=== PATIENT | male | born 1930 | race African-American/Black ===

== ENCOUNTER 2017-11-23 15:29 | Outpatient (CLI) | payer MEDICARE, OTHER | END 2017-11-23 15:30 | disposition home or self-care (01) | LOC: BICRAD 15:29 | PROVIDERS: ATTEND Internal Medicine Cardiovascular Disease | DX: Z48.812 Encounter for surgical aftercare following surgery on the circulatory system (principal); Z95.0 Presence of cardiac pacemaker | CPT/HCPCS: 71046 ==

== ENCOUNTER 2018-12-15 18:23 | Emergency (ER) | payer MEDICARE, OTHER ==
[2018-12-15 19:36] LABS: #Eosinphils 0.1 thou/uL (0.0-0.7); #Lymphocytes 1.9 thou/uL (1.20-3.40); #Monocytes 1.2 thou/uL (0.11-0.59); #Neutrophils 8.3 thou/uL (1.40-6.50); %Basophils 0.1 % (0.0-1.0); %Eosinophils 0.6 % (0.0-10.0); %Lymphocytes 16.4 % (21.0-51.0); %Monocytes 10.6 % (0.0-10.0); %Neutrophils 72.3 % (42.0-75.0); Hemoglobin 10.5 g/dL (14.0-18.0); Mean Corpuscular HGB CONC 31.8 g/dL (32.0-36.0); Mean Corpuscular Hemoglobin 30.2 pg (27.0-31.0); Mean Platelet Volume 9.5 fL (7.4-10.4); Platelet Count 149 thou/uL (130-400); RBC Distribution Width 13.5 % (11.5-14.5); Red Blood Cell (RBC) Count 3.47 mill/uL (4.70-6.10); White Blood Cell (WBC) Count 11.4 thou/uL (4.8-10.8)
[2018-12-15 19:53] LABS: ALT (SGPT) 11 U/L (8-55); AST (SGOT) 17 U/L (5-34); Albumin 3.9 g/dL (3.4-4.8); Alkaline Phosphatase 72 U/L (40-150); Anion Gap 16 mmol/L (10-20); BUN (Urea Nitrogen) 31 mg/dL (8.4-25.7); Bilirubin, Total 0.7 mg/dL (0.2-1.2); Calc. Creatinine Clearance 0 mL/min (70-130); Calcium 10.2 mg/dL (7.8-10.44); Carbon Dioxide 26 mmol/L (23-31); Chloride 100 mmol/L (98-107); Estimated GFR-MDRD 31; Globulin 3.8 g/dL (2.4-3.5); Glucose 115 mg/dL (83-110); Lipase 22 U/L (8-78); Potassium 4.7 mmol/L (3.5-5.1); Protein, Total 7.7 g/dL (5.8-8.1); Sodium 137 mmol/L (136-145)
--- NOTE | 2018-12-15 20:12 | RAD ---
EXAM: Chest one view: HISTORY: Vomiting for 3 weeks, fever COMPARISON: 11/23/2017 FINDINGS: Left ICD. Heart size: Within normal limits. The lungs: Minimal patchy parenchymal changes in the left lower lobe new from prior study concerning for minimal pneumonia. Stable appearing right chest. No acute pleural effusion or edema or pneumothorax. IMPRESSION: Minimal patchy parenchymal changes in the left lower lobe evidence for minimal pneumonia.
[2018-12-15 20:37] LABS: Bilirubin Negative (Negative); Blood, Urine Small (Negative); Clarity CLEAR (Clear); Glucose, Urine (Dipstick) Negative (Negative); Leukocyte Negative (Negative); Nitrite Negative (Negative); Protein, Urine (Dipstick) 100 mg/dL (Neg-Trace); Specific Gravity, Urine 1.018 (1.002-1.036)
[2018-12-15 20:40] LABS: Bacteria/HPF None Seen HPF (None Seen); Hyaline Casts/LPF 0-3 HYALINE CAST LPF (0-3 Hyaline); RBC/HPF 0-3 HPF (0-3); Squamous Epithelial 0-3 HPF (0-3); WBC/HPF 0-3 HPF (0-3)
== END 2018-12-15 21:40 | disposition home or self-care (01) ==
LOC: ERS 18:23
DX: J18.9 Pneumonia, unspecified organism (principal); R11.2 Nausea with vomiting, unspecified; I10 Essential (primary) hypertension
CPT/HCPCS: 36415; 71045; 80053; 81003; 81015; 83690; 84484; 85025; 87040; 87804; 93005

== ENCOUNTER 2020-02-25 09:24 | Emergency (ER) | payer MEDICARE ==
[2020-02-25] MEDS ORDERED: Fentanyl 100 MCG/2 ML VIAL ONE (10:53)
--- NOTE | 2020-02-25 11:22 | RAD ---
RIGHT KNEE FOUR VIEWS: 02/25/2020 HISTORY: Fall. Right knee pain. COMPARISON: None. FINDINGS: Chondrocalcinosis of the medial and lateral compartment noted. There is medial compartment joint spac e narrowing with medial osteophyte formation. No knee joint effusion is noted on the cross-table late ral view. No acute fracture or evidence of dislocation is seen. There is patellofemoral joint space narrowing. On the cross-table lateral view, the cortex is ill-defined, involving the ventral aspect of the dista l right femur. This could be related to a nondisplaced fracture in the proper clinical setting. CT ma y be beneficial if clinically warranted. IMPRESSION: Chronic findings as detailed above. No displaced fracture or dislocation seen. There is subtle cortic al irregularity involving the anterior cortex of the distal left femur on the lateral view, which cou ld be related to a subtle nondisplaced fracture or focal osteopenia. If there is clinical concern for an anterior distal right femur fracture, a CT examination is thus advised. POS: RENATO
--- NOTE | 2020-02-25 11:24 | RAD ---
FRONTAL AND LATERAL IMAGING OF THE RIGHT FEMUR: 02/25/2020 HISTORY: Fall. Trauma. Pain. FINDINGS: No displaced fracture or evidence of dislocation seen. Subtle cortical irregularity is seen involving the anterior cortex of the distal right femur, which may signify focal osteopenia. If there is high clinical concern for a fracture at the level of the right knee, CT advised. The right hip is better a ssessed on dedicated right hip imaging. IMPRESSION: Frontal and lateral imaging of the right femur, as above. POS: RENATO
--- NOTE | 2020-02-25 11:26 | RAD ---
RIGHT HIP TWO VIEWS: HISTORY: Fall with injury. FINDINGS: The lucency seen at the base of the femoral neck is indeterminate. Fracture is not excluded although not confirmed. There are degenerative changes at the hip. IMPRESSION: Fracture at the base of the femoral neck cannot be excluded on the anterior-posterior view. If there is strong clinical suspicion, recommend further evaluation with CT right hip. POS: AGW
--- NOTE | 2020-02-25 11:57 | CT ---
CT PELVIS WITHOUT CONTRAST: INDICATIONS: Injury to right hip. Assess for fracture. FINDINGS: There are mild symmetric degenerative changes at both hips. No evidence of right hip fracture identif ied on CT. Pelvis appears intact. Degenerative changes in the lumbosacral region. No soft tissue abnormality identified. There is evidence of a cystic lesion on the first image, which probably represents a cyst from the lower pole of the left kidney. This could be confirmed with ultr asound. IMPRESSION: 1. Degenerative changes at both hips and in the lumbosacral region. No acute fracture identified. 2. Evidence of a large cyst probably from the inferior pole of the left kidney. When comparison is ma ole to a CT lumbar spine from 2016, this cyst was partially imaged on that study. POS: PK
== END 2020-02-25 11:05 | disposition home or self-care (01) ==
LOC: ERS 09:24
DX: S80.01XA Contusion of right knee, initial encounter (principal); S70.01XA Contusion of right hip, initial encounter; E78.5 Hyperlipidemia, unspecified; E78.00 Pure hypercholesterolemia, unspecified; I10 Essential (primary) hypertension; W01.0XXA Fall on same level from slipping, tripping and stumbling without subsequent striking against object, initial encounter; Y92.096 Garden or yard of other non-institutional residence as the place of occurrence of the external cause
CPT/HCPCS: 72192; 96372; J3010

== ENCOUNTER 2020-07-18 20:18 | Emergency (ER) | payer MEDICARE ==
--- NOTE | 2020-07-18 21:47 | RAD ---
RADIOGRAPH CHEST 1 VIEW: DATE: 07/18/2020 HISTORY: 89-year-old male with cough. COMPARISON: 04/20/2020 FINDINGS: The thoracic aorta is tortuous and ectatic. There is no evidence of consolidation, cardiomegaly, pulm onary edema, or pneumothorax. The lateral costophrenic angles are not effaced. Left subclavian pacemaker. There is new finding of mild, small ill-defined densities at bilateral lung bases. These could repres ent subsegmental atelectasis associated with shallower inspiration on the current study. They are somewhat less likely to represent pneumonia. IMPRESSION: 1) No consolidation. 2) ectasia of thoracic aorta. 3) nonspecific mild small, faint pulmonary densities at the bilateral lung bases. 4) recommend follow-up.
[2020-07-19 09:38] LABS: SARS-CoV-2 MS2 Positive; SARS-CoV-2 N Gene Positive; SARS-CoV-2 S Gene Positive; SARS-CoV-2 by NAA DETECTED (NotDetected); SARS-CoV-2 orf1ab Positive
== END 2020-07-18 23:08 | disposition home or self-care (01) ==
LOC: ERS 20:18
DX: U07.1 COVID-19 (principal); E78.5 Hyperlipidemia, unspecified; E78.00 Pure hypercholesterolemia, unspecified; I10 Essential (primary) hypertension; M10.9 Gout, unspecified; Z79.899 Other long term (current) drug therapy
CPT/HCPCS: 71045; U0003; 87635

== ENCOUNTER 2020-07-23 15:43 | Inpatient (IN) | payer MEDICARE ==
[2020-07-23] MEDS ORDERED: cefTRIAXone\\ROCEPHIN 1 GM VIAL ONE (16:45)
[2020-07-23] MEDS ORDERED: Azithromycin 500 MG VIAL ONE ×2 (16:45→18:34)
[2020-07-23] MEDS ORDERED: Acetaminophen 500 MG TAB ONE (16:45)
[2020-07-23] MEDS ORDERED: Dexamethasone 10 MG/ML VIAL ONE (16:45)
[2020-07-23] MEDS ORDERED: Albuterol 200 PUFF (6.7GM INHALER) ONE (16:46)
[2020-07-23 16:55] LABS: #Basophils 0.1 thou/uL (0.0-0.2); #Lymphocytes 1.9 thou/uL (1.20-3.40); #Monocytes 0.7 thou/uL (0.11-0.59); #Neutrophils 7.2 thou/uL (1.40-6.50); %Basophils 0.5 % (0.0-1.0); %Eosinophils 0.2 % (0.0-10.0); %Lymphocytes 19.7 % (21.0-51.0); %Monocytes 6.6 % (0.0-10.0); Hemoglobin 10.4 g/dL (14.0-18.0); Mean Corpuscular HGB CONC 32.6 g/dL (32.0-36.0); Mean Corpuscular Hemoglobin 31.3 pg (27.0-31.0); Mean Corpuscular Volume 96.1 fL (78.0-98.0); Mean Platelet Volume 11.7 fL (7.4-10.4); Platelet Count 171 thou/uL (130-400); Red Blood Cell (RBC) Count 3.31 mill/uL (4.70-6.10); White Blood Cell (WBC) Count 9.9 thou/uL (4.8-10.8)
[2020-07-23 16:59] LABS: PTT 32.8 sec (22.9-36.1); Prothrombin Time 13.3 sec (12.0-14.7)
[2020-07-23 17:03] LABS: Bilirubin 1+ (Negative); Blood, Urine 2+ (Negative); Clarity Turbid (Clear); Glucose, Urine (Dipstick) Normal (Negative); Ketone, Urine Negative (Negative); Leukocyte 75 Leu/uL (Negative); Nitrite Negative (Negative); Protein, Urine (Dipstick) Greater than 600 mg/dL (Neg-Trace); Specific Gravity, Urine 1.026 (1.002-1.036); Squamous Epithelial 0-3 HPF (0-3); WBC/HPF 21-50 HPF (0-3)
[2020-07-23 17:06] LABS: Bacteria/HPF 1+ HPF (None Seen)
[2020-07-23 17:13] LABS: ALT (SGPT) 39 U/L (8-55); AST (SGOT) 63 U/L (5-34); Albumin 3.5 g/dL (3.4-4.8); Alkaline Phosphatase 63 U/L (40-110); Anion Gap 21 mmol/L (10-20); BUN (Urea Nitrogen) 47 mg/dL (8.4-25.7); Bilirubin, Total 1.4 mg/dL (0.2-1.2); Calc. Creatinine Clearance 0 mL/min (70-130); Calcium 9.2 mg/dL (7.8-10.44); Carbon Dioxide 20 mmol/L (23-31); Chloride 103 mmol/L (98-107); Estimated GFR-MDRD 27; Glucose 117 mg/dL (83-110); Potassium 4.7 mmol/L (3.5-5.1); Protein, Total 7.5 g/dL (5.8-8.1); Sodium 139 mmol/L (136-145)
--- NOTE | 2020-07-23 17:18 | RAD ---
RADIOGRAPH CHEST 1 VIEW: DATE: 07/23/2020 TIME: 5:01 PM HISTORY: 89-year-old COVID-19 positive male with cough COMPARISON: 07/18/2020 FINDINGS: Previously demonstrated mild small faint pulmonary densities at left base has slightly worsened. Mild, faint infiltrate-like density at right base is again noted, but now there is also a patchy hazy density at a slightly more superior location in the right lower lung zone. No cardiomegaly. No pneumothorax. Pacemaker. IMPRESSION: Slight progression of mild pulmonary densities at bilateral lower lung zones, nonspecific. The density at the right lower lung zone could perhaps represent COVID-19 viral pneumonia. Recommend follow-up.
[2020-07-23 17:36] LABS: CKMB 0.9 ng/mL (0-6.6)
--- NOTE | 2020-07-23 18:16 | CT ---
CT BRAIN NONCONTRAST: DATE: 07/23/2020 HISTORY: 89-year-old male with altered mental status: Confusion, and acute head injury from fall FINDINGS: There is no evidence of acute intra-axial or extra-axial hemorrhage. There is no midline shift or any other mass effect. There is no extra-axial fluid collection. There is no evidence of obstructive hydrocephalus. Calvarium is intact. There is diffuse brain parenchymal volume loss. IMPRESSION: 1) No acute intracranial findings. 2) involutional changes.
--- NOTE | 2020-07-23 18:20 | CT ---
CT CERVICAL SPINE NONCONTRAST: DATE: 07/23/2020 HISTORY: cervical trauma: 89-year-old male status post fall FINDINGS: There are no jumped or perched facets. There is no evidence of acute fracture. The vertebral body hei ghts are maintained. There is no prevertebral soft tissue swelling. Severe degenerative disc disease at C3-4 and C4-5, where there is severe central spinal canal stenosis and severe bilateral ne ural foraminal stenosis. No high-grade degenerative disc disease at the rest of the levels. No high-grade facet DJD. IMPRESSION: 1. No evidence of acute fracture or acute traumatic subluxation. 2. Cervical spondylosis consisting of severe degenerative disc disease isolated to the C3-4 and C4-5 levels, where there is severe central spinal canal stenosis and severe bilateral neural foraminal stenosis.
--- NOTE | 2020-07-23 18:25 | CT ---
CT THORAX NONCONTRAST: DATE: 07/23/2020 HISTORY: 89-year-old COVID-19 positive male with cough FINDINGS: There are severe groundglass infiltrates throughout the superior and basilar segments of the right lo wer lobe, both centrally and peripherally, which appears more severe than on the recent plain chest radiograph. There is involvement of the posterior segment, as well as regions of the anterior segment, of the rig ht upper lobe, of a moderately severe degree. There are moderately severe such infiltrates in the contralateral left lower lobe, involving basilar and superior segments. No pleural effusion, pneumothorax, cardiomegaly, pericardial effusion, or thoracic aortic aneurysm. Left subclavian pacemaker. IMPRESSION: Bilateral infiltrates involving almost the entire right lower lobe, much of the left lower lobe, and much of the right upper lobe, which appear much more severe on the CT compared to the plain radiograph. This is consistent with pneumonia, probably COVID-19 pneumonia.
[2020-07-23] MEDS ORDERED: Acetaminophen 325 MG TAB PO PRN (20:16)
[2020-07-23] MEDS ORDERED: Enoxaparin Sodium 30 MG/0.3 ML SYRINGE ONE (20:39)
[2020-07-23 21:47] LABS: Troponin I 0.046 ng/mL (< 0.028)
[2020-07-24 00:30] LABS: Troponin I 0.041 ng/mL (< 0.028)
[2020-07-24] MEDS: Famotidine 20 MG TAB PO SCH ×2 (00:34→19:50)
[2020-07-24] MEDS ORDERED: Benzonatate 100 MG CAP PO PRN (00:52)
--- NOTE | 2020-07-24 02:23 | HP ---
PRIMARY CARE PHYSICIAN: Dr. Michael Smith. CHIEF COMPLAINT: Confusion, lethargy, COVID positive diagnosis. HISTORY OF PRESENT ILLNESS: Mr. Ventura is a very pleasant 89-year-old man, who came to the emergency room today via EMS. EMS reported that the patient's family called because he had been confused for the past few days. Family reported that he had fallen, but denied that he hit his head or lost any consciousness. The patient complains of generalized weakness. EMS reported some mild hypotension and mild tachycardia when they picked him up. He was seen in this ER on 07/18 when he was diagnosed with COVID-19. Chest x-ray at that time showed nonspecific densities in the lower lung black. He was not hypoxic and he was sent home. Since that time, family reports that he has gotten confused. He reports coughing, but denied coughing anything up, and they denied any GI symptoms. The patient denies fever or dysuria. Past medical history, he has a pacemaker, history of hyperlipidemia, hypertension, gout. Laboratory values in the emergency room, white blood cell count is 9.9, platelets are 171. Carbon dioxide 20, gap is 21, BUN is 47, creatinine is 2.71, glucose 117, bilirubin 1.4, AST 63. He has had 3 troponins, which were in the indeterminate range. He does have a history of chronic kidney dysfunction, and today, he has some acute on chronic. He became hypoxic while in the emergency room, which improved after 2 L of nasal cannula. They did give him 2 L of normal saline, Lovenox, azithromycin, Rocephin, dexamethasone, and albuterol inhaler, which improved his symptoms. He is afebrile while in the emergency room. He had a brain CT, which was negative for any acute findings. He did have a chest CT, which showed bilateral infiltrates involving almost the entire right lower lobe, much of the left lower lobe, and much of the right upper lobe, consistent with COVID-19 pneumonia. He also had a cervical spine CT, which was negative for any acute fracture. He will be admitted to telemetry for further management. REVIEW OF SYSTEMS: The patient denied fever, chills. Does report a cough, shortness of breath, confusion, hypotension. All systems were reviewed and are negative unless mentioned above or in the HPI. PAST MEDICAL HISTORY: Atrial fibrillation, has a pacemaker; chronic back pain; BPH; GERD; hypertension; hyperlipidemia; peripheral neuropathy; iron deficiency anemia. SURGICAL HISTORY: Right hip repair, pacemaker placement. SOCIAL HISTORY: He lives with his . He uses a cane for ambulation. Denies any tobacco, alcohol, or drug use. FAMILY HISTORY: Hyperlipidemia, arthritis, heart disease, and hypertension. ALLERGIES: NONE. HOME MEDICATIONS: 1. Allopurinol 300 mg p.o. daily. 2. Aspirin 81 mg p.o. daily. 3. Ferrous sulfate 325 mg p.o. daily. 4. Finasteride 5 mg p.o. daily. 5. Gabapentin 600 mg p.o. daily. 6. Prilosec 20 mg p.o. daily. 7. Pravastatin 40 mg p.o. q.p.m. 8. Flomax 0.4 mg p.o. h.s. 9. Tessalon 100 mg p.o. t.i.d. p.r.n. 10. Mag-Ox 400 mg p.o. daily. PHYSICAL EXAMINATION: VITAL SIGNS: Blood pressure 121/58, pulse is 70, respiratory rate is 21, temperature is 98.8, sats are 99% on 2 L. CONSTITUTIONAL: The patient appears nontoxic. He is alert and oriented to person and place. HEAD: Atraumatic and normocephalic. EYES: Pupils are equally round and reactive to light. ENT: Mouth exam is normal. Mucous membranes are moist. NECK: Trachea is midline. No cervical adenopathy. RESPIRATORY/CHEST: He does have decreased breath sounds, bilateral lobes. Scattered wheezing. Chest expansion is equal. CARDIOVASCULAR: Heart sounds are normal. He has a pacemaker in the left upper chest. ABDOMEN: Nontender. Bowel sounds are heard. EXTREMITIES: Upper extremity, normal range of motion. Motor strength is normal. Radial pulses are normal. Lower extremity, normal range of motion. Motor strength is normal. Pedal pulses are normal. NEURO: He is oriented to person and place. Does take him a minute to answer questions. PLAN/ASSESSMENT: 1. COVID-19 pneumonia with hypoxia. We will continue the dexamethasone daily. We have consulted Dr. iKng. We have continued azithromycin, Rocephin, added albuterol inhaler. Blood cultures were obtained. We have added a CRP, D-dimer, ferritin, LDH, magnesium, procalcitonin for the a.m. 2. Hypoxia. Please see #1. 3. Acute on chronic kidney disease. We will recheck values in the morning. Hold any nephrotoxic medications. 4. Elevated troponin x3, in the indeterminate range, although on his last visit. 5. History of hyperlipidemia. We will restart his pravastatin. 6. History of gout. We will continue the allopurinol. 7. Deep venous thrombosis and gastrointestinal prophylaxis started. 8. Case discussed with Dr. Rivera, who agrees with plan. 9. Hospital course dependent on clinical findings. Job ID: [id number]
[2020-07-24 05:43] LABS: #Lymphocytes 1.1 thou/uL (1.20-3.40); #Monocytes 0.2 thou/uL (0.11-0.59); #Neutrophils 5.2 thou/uL (1.40-6.50); %Basophils 0.5 % (0.0-1.0); %Eosinophils 0.2 % (0.0-10.0); %Lymphocytes 16.2 % (21.0-51.0); %Monocytes 3.5 % (0.0-10.0); %Neutrophils 79.7 % (42.0-75.0); Hemoglobin 8.3 g/dL (14.0-18.0); Mean Corpuscular HGB CONC 31.8 g/dL (32.0-36.0); Mean Corpuscular Hemoglobin 30.6 pg (27.0-31.0); Mean Corpuscular Volume 96.1 fL (78.0-98.0); Mean Platelet Volume 10.7 fL (7.4-10.4); Platelet Count 161 thou/uL (130-400); RBC Distribution Width 13.8 % (11.5-14.5); Red Blood Cell (RBC) Count 2.72 mill/uL (4.70-6.10); White Blood Cell (WBC) Count 6.5 thou/uL (4.8-10.8)
[2020-07-24 06:10] LABS: ALT (SGPT) 29 U/L (8-55); AST (SGOT) 40 U/L (5-34); Alkaline Phosphatase 52 U/L (40-110); Anion Gap 18 mmol/L (10-20); BUN (Urea Nitrogen) 55 mg/dL (8.4-25.7); Bilirubin, Total 1.1 mg/dL (0.2-1.2); CRP (Inflammatory) 25.77 mg/dL (= or < 0.5); Calc. Creatinine Clearance 18 mL/min (70-130); Calcium 9.1 mg/dL (7.8-10.44); Carbon Dioxide 19 mmol/L (23-31); Chloride 107 mmol/L (98-107); Estimated GFR-MDRD 26; Glucose 153 mg/dL (83-110); Magnesium 1.6 mg/dL (1.6-2.6); Potassium 4.4 mmol/L (3.5-5.1); Sodium 140 mmol/L (136-145)
[2020-07-24] MEDS: Dexamethasone 4 MG TAB PO SCH (08:08)
[2020-07-24] MEDS: Aspirin Chewable 81 MG TAB PO SCH (08:08)
[2020-07-24] MEDS: Gabapentin 300 MG CAP PO SCH (08:08)
[2020-07-24] MEDS: Finasteride 5 MG TAB PO SCH (08:09)
[2020-07-24] MEDS: Enoxaparin Sodium 40 MG/0.4 ML SYRINGE SC SCH (08:09)
[2020-07-24] MEDS: Allopurinol 300 MG TAB PO SCH (08:09)
[2020-07-24] MEDS: Sodium Bicarbonate Tab 325 MG TAB PO SCH ×2 (15:13→19:50)
[2020-07-24] MEDS: cefTRIAXone\\ROCEPHIN 1 GM in Sodium Chloride 0.9% 100 ML IVPB SCH (15:13)
--- NOTE | 2020-07-24 15:33 | PDOC.HOSPP ---
- Subjective Encounter Date: 07/24/20 Subjective: Patient was seen and examined in bed. He was generally comfortable on 2 L of oxygen. Denies any cough chest pain or shortness of breath. No significant events overnight. - Objective Vital Signs & Weight: Vital Signs (12 hours) Temp Pulse Pulse Pulse Resp BP BP 07/24/20 11:15 98.5 F 69 20 07/24/20 10:40 73 75 144/69 H 132/63 07/24/20 08:15 98.5 F 67 20 BP Pulse Ox Pulse Ox Pulse Ox 07/24/20 11:15 124/56 L 99 07/24/20 10:40 100 98 07/24/20 08:15 136/65 99 Weight Admit Weight 153 lb 8 oz Weight 153 lb 8 oz I&O: 07/23/20 07/24/20 07/25/20 06:59 06:59 06:59 Intake Total 240 Output Total 0 Balance 240 Result Diagrams: 07/24/20 05:25 07/24/20 05:25 Hospitalist ROS - Medication Medications: Active Medications Generic Name Dose Route Start Last Admin Trade Name Freq PRN Reason Stop Dose Admin Allopurinol 300 mg 07/24/20 09:00 07/24/20 08:09 Allopurinol 300 Mg Tab PO 300 mg DAILY MIK Administration Aspirin 81 mg 07/24/20 09:00 07/24/20 08:08 Aspirin Chewable 81 Mg Tab PO 81 mg DAILY MIK Administration Dexamethasone 6 mg 07/24/20 08:00 07/24/20 08:08 Dexamethasone 4 Mg Tab PO 6 mg QAM-WM MIK Administration Enoxaparin Sodium 40 mg 07/24/20 09:00 07/24/20 08:09 Enoxaparin Sodium 40 Mg/0.4 Ml Syringe SC 40 mg 0900 MIK Administration Famotidine 20 mg 07/23/20 21:00 07/24/20 00:34 Famotidine 20 Mg Tab PO 20 mg 2100 MIK Administration Finasteride 5 mg 07/24/20 09:00 07/24/20 08:09 Finasteride 5 Mg Tab PO 5 mg DAILY MIK Administration Gabapentin 600 mg 07/24/20 09:00 07/24/20 08:08 Gabapentin 300 Mg Cap PO 600 mg DAILY MIK Administration Ceftriaxone Sodium 1 gm/ 100 mls @ 200 mls/hr 07/24/20 16:00 07/24/20 15:13 Sodium Chloride IVPB 100 mls Q24HR MIK Administration Sodium Bicarbonate 650 mg 07/24/20 15:00 07/24/20 15:13 Sodium Bicarbonate Tab 325 Mg Tab PO 650 mg TID MIK Administration - Exam General Appearance: awake alert Heart: RRR, no murmur, no gallops Respiratory: CTAB, no wheezes, no rales Gastrointestinal: soft, non-tender, non-distended, normal bowel sounds Extremities: no cyanosis, no clubbing, no edema Neurological: cranial nerve grossly intact, no focal deficits Psychiatric: A&O x 3 Hosp A/P - Plan This is a 89-year-old male patient admitted on account of Covid pneumonia d iagnosed on 07/18/2020. He presented earlier and got readmitted a day ago on account of confusion hypoxia and dyspnea. Acute hypoxic respiratory failure Secondary to Covid On minimal oxygen2 L Continue monitoring closely. Pneumonia due to Covid Continue on Decadron, enoxaparin Serial ferritin, CRP ID has been consulted Acute on chronic CKD Hold nephrotoxic agents Monitor BMP History of gout Continue allopurinol UTI Culture growing presumptive Proteus mirabilis Continue antibiotics for now Appreciate ID input. VT prophylaxisLovenox CODE STATUSfull code
[2020-07-24] MEDS ORDERED: Azithromycin 500 MG in Sodium Chloride 0.9% 250 ML 250 ML IVPB SCH (18:00)
[2020-07-24] MEDS: Atorvastatin Calcium 10 MG TAB PO SCH (19:50)
[2020-07-24] MEDS: Tamsulosin HCl 0.4 MG CAP PO SCH (19:50)
--- NOTE | 2020-07-25 02:24 | CON ---
DATE OF CONSULTATION: 07/24/2020 REASON FOR CONSULT: COVID pneumonia. HISTORY OF PRESENT ILLNESS: An 89-year-old, history of sick sinus syndrome with pacemaker, hyperlipidemia, and hypertension, who was brought to the ER by EMS after family reported he was confused for the past few days, sustained a fall, although he did not lose his consciousness. Mild hypotension. No tachycardia. A few days earlier, he had been diagnosed with COVID infection. He had nonspecific densities in lower lung black and in a confusional state developed in the next few days. There were some coughing spells but not frequently. No fever was identified by the family members. Initial findings included blood pressure 117/60, pulse 100, respirations 17, and O2 saturation 98% on room air. Temp went up to 101.3 in the emergency room. The exam described wheezing anteriorly in the left side, diminished breath sounds in lower lobes and then described as oriented x3, but sluggish with replies. Other findings; white cell count 9.9, hemoglobin 10.4, platelets 171, and 72% neutrophils. INR 1.0. D-dimer 3.41. Sodium 139, creatinine 2.71, bilirubin 1.4, and AST 63. Troponin 0.069. Albumin 3.5, globulin 4.0. Urinalysis wbc's. Patient had a chest CT scan yesterday which showed infiltrates involving the entire right lower lobe, much of the left lower lobe, much of the right upper lobe. Ferritin was 8600 and the C-reactive protein was 25. Patient has been given ceftriaxone, Decadron and currently Mr. Ventura is awake. He does not appear to be in distress. His O2 saturations are improving. Denies any headaches. Mild dyspnea and some cough. No back pain. No abdominal pain. No vomiting. Able to void without difficulty. MEDICAL HISTORY: Sick sinus syndrome, pacemaker, hyperlipidemia, hypertension, chronic low back pain, BPH, GERD, neuropathy, and iron-deficiency anemia. SURGICAL HISTORY: Right hip repair and the pacemaker. SOCIAL HISTORY: . Never smoker. FAMILY HISTORY: Hypertension and hyperlipidemia. ALLERGIES: NONE. MEDICATION LIST: At the moment, patient is on: 1. DuoNeb. 2. Zyloprim. 3. Lipitor. 4. Tessalon. 5. Ceftriaxone. 6. Decadron. 7. Lovenox. 8. Neurontin. PHYSICAL EXAMINATION: VITAL SIGNS: Temperature has been normal. BP 108/56, heart rate 73, respiratory rate 18, and O2 saturation 97% on 2 L nasal cannula. SKIN: Shows peripheral IV access. He is voiding in the urinal. No lymphadenopathy. HEENT: Ocular movements conjugate. Oral cavity is unremarkable. NECK: Supple. LUNGS: Symmetric air entry. Basilar crackles. HEART: S1, S2. Regular rate. ABDOMEN: Soft. Not distended or tender. No ascites. No bladder distention. EXTREMITIES: No joint inflammatory activity. Moves extremities equally. No edema. NEUROLOGIC: Awake and oriented. Follows commands. Recollection is good. LABORATORY: Creatinine is at 2.8. ASSESSMENT/DISCUSSION: 1. Sick sinus syndrome with pacemaker. 2. Hypertension. 3. [id number] COVID pneumonia. Patient is not eligible for Remdesivir due to GFR. Continue on Decadron. May consider discontinuing ceftriaxone since the frequency of superimposed bacterial pneumonia in COVID patient is less than 5%. This is the 6th or 7th day of illness. If he going into the inflammatory phase, he has high ferritin and CRP, and then he will have to be monitored closely in the next few days in the hospital since there is a high possibility of deterioration once he gets in to the second week of this illness. This deterioration can be sudden. The harbinger usually is increasing requirement of fluctuations of oxygen supplementation which can progress very rapidly. On the other hand, we may see a decrease in inflammatory markers and stability. It is hard to predict with this illness. Job ID: [id number] MTDD
[2020-07-25 05:42] LABS: #Lymphocytes 1.3 thou/uL (1.20-3.40); #Monocytes 0.6 thou/uL (0.11-0.59); #Neutrophils 15.2 thou/uL (1.40-6.50); %Basophils 0.2 % (0.0-1.0); %Eosinophils 0.2 % (0.0-10.0); %Lymphocytes 7.5 % (21.0-51.0); %Monocytes 3.7 % (0.0-10.0); %Neutrophils 88.6 % (42.0-75.0); Hemoglobin 8.8 g/dL (14.0-18.0); Mean Corpuscular HGB CONC 30.9 g/dL (32.0-36.0); Mean Corpuscular Hemoglobin 30.6 pg (27.0-31.0); Mean Corpuscular Volume 99.1 fL (78.0-98.0); Mean Platelet Volume 10.5 fL (7.4-10.4); Platelet Count 204 thou/uL (130-400); Red Blood Cell (RBC) Count 2.88 mill/uL (4.70-6.10); White Blood Cell (WBC) Count 17.2 thou/uL (4.8-10.8)
[2020-07-25 06:06] LABS: Anion Gap 20 mmol/L (10-20); BUN (Urea Nitrogen) 73 mg/dL (8.4-25.7); CRP (Inflammatory) 15.01 mg/dL (= or < 0.5); Calc. Creatinine Clearance 17 mL/min (70-130); Calcium 9.2 mg/dL (7.8-10.44); Carbon Dioxide 16 mmol/L (23-31); Chloride 107 mmol/L (98-107); Estimated GFR-MDRD 25; Glucose 118 mg/dL (83-110); Potassium 4.9 mmol/L (3.5-5.1); Sodium 138 mmol/L (136-145)
[2020-07-25] MEDS: Sodium Bicarbonate Tab 325 MG TAB PO SCH ×3 (07:59→19:38)
[2020-07-25] MEDS: Ferrous Sulfate 325 MG TAB PO SCH (08:00)
[2020-07-25] MEDS: Dexamethasone 4 MG TAB PO SCH (08:00)
[2020-07-25] MEDS: Aspirin Chewable 81 MG TAB PO SCH (08:00)
[2020-07-25] MEDS: Allopurinol 300 MG TAB PO SCH (08:00)
[2020-07-25] MEDS: Gabapentin 300 MG CAP PO SCH (08:00)
[2020-07-25] MEDS: Finasteride 5 MG TAB PO SCH (08:00)
[2020-07-25] MEDS: Enoxaparin Sodium 40 MG/0.4 ML SYRINGE SC SCH (08:01)
--- NOTE | 2020-07-25 12:01 | PDOC.HOSPP ---
- Subjective Encounter Date: 07/25/20 Encounter Time: 11:15 Subjective: is on nasal canula, no sob, feels better says he is eating well moves all extremities responds well to verbal stimuli - Objective Vital Signs & Weight: Vital Signs (12 hours) Temp Pulse Resp BP Pulse Ox 07/25/20 08:10 98 F 76 18 130/57 L 94 L 07/25/20 03:29 97.6 F 70 18 125/56 L 95 Weight Admit Weight 153 lb 8 oz Weight 152 lb 4.8 oz I&O: 07/24/20 07/25/20 07/26/20 06:59 06:59 06:59 Intake Total 240 820 530 Output Total 0 225 75 Balance 240 595 455 Result Diagrams: 07/25/20 05:07 07/25/20 05:07 Hospitalist ROS - Medication Medications: Active Medications Generic Name Dose Route Start Last Admin Trade Name Freq PRN Reason Stop Dose Admin Allopurinol 300 mg 07/24/20 09:00 07/25/20 08:00 Allopurinol 300 Mg Tab PO 300 mg DAILY MIK Administration Aspirin 81 mg 07/24/20 09:00 07/25/20 08:00 Aspirin Chewable 81 Mg Tab PO 81 mg DAILY MIK Administration Atorvastatin Calcium 10 mg 07/24/20 21:00 07/24/20 19:50 Atorvastatin Calcium 10 Mg Tab PO 10 mg QPM MIK Administration Dexamethasone 6 mg 07/24/20 08:00 07/25/20 08:00 Dexamethasone 4 Mg Tab PO 6 mg QAM-WM MIK Administration Enoxaparin Sodium 40 mg 07/24/20 09:00 07/25/20 08:01 Enoxaparin Sodium 40 Mg/0.4 Ml Syringe SC 40 mg 0900 MIK Administration Famotidine 20 mg 07/23/20 21:00 07/24/20 19:50 Famotidine 20 Mg Tab PO 20 mg 2100 MIK Administration Ferrous Sulfate 325 mg 07/25/20 09:00 07/25/20 08:00 Ferrous Sulfate 325 Mg Tab PO 325 mg DAILY MIK Administration Finasteride 5 mg 07/24/20 09:00 07/25/20 08:00 Finasteride 5 Mg Tab PO 5 mg DAILY MIK Administration Gabapentin 600 mg 07/24/20 09:00 07/25/20 08:00 Gabapentin 300 Mg Cap PO 600 mg DAILY MIK Administration Ceftriaxone Sodium 1 gm/ 100 mls @ 200 mls/hr 07/24/20 16:00 07/24/20 15:13 Sodium Chloride IVPB 100 mls Q24HR MIK Administration Sodium Bicarbonate 650 mg 07/24/20 15:00 07/25/20 07:59 Sodium Bicarbonate Tab 325 Mg Tab PO 650 mg TID MIK Administration Tamsulosin HCl 0.4 mg 07/24/20 21:00 07/24/20 19:50 Tamsulosin Hcl 0.4 Mg Cap PO 0.4 mg HS MIK Administration - Exam General Appearance: awake alert Eye: PERRL, anicteric sclera ENT: no oropharyngeal lesions, moist mucosa Neck: supple, no JVD Heart: RRR, no murmur Respiratory: no wheezes, no rales Gastrointestinal: soft, non-tender, non-distended, normal bowel sounds Extremities: no cyanosis, no edema Neurological: cranial nerve grossly intact, no focal deficits Hosp A/P (1) Pneumonia due to COVID-19 virus Code(s): U07.1 - COVID-19; J12.89 - OTHER VIRAL PNEUMONIA Status: Acute (2) Acute respiratory failure with hypoxia Code(s): J96.01 - ACUTE RESPIRATORY FAILURE WITH HYPOXIA Status: Acute (3) [id number] kidney injury Code(s): N17.9 - ACUTE KIDNEY FAILURE, UNSPECIFIED; N18.9 - CHRONIC KIDNEY DISEASE, UNSPECIFIED Status: Acute Qualifiers: Chronic kidney disease stage: stage 4 (severe) (4) Anemia Code(s): D64.9 - ANEMIA, UNSPECIFIED Status: Chronic Qualifiers: Anemia type: unspecified type Qualified Code(s): D64.9 - Anemia, unspecified (5) Chronic back pain Code(s): M54.9 - DORSALGIA, UNSPECIFIED; G89.29 - OTHER CHRONIC PAIN Status: Chronic Qualifiers: Back pain location: back pain in unspecified location (6) Gout Code(s): M10.9 - GOUT, UNSPECIFIED Status: Chronic Qualifiers: Gout site: unspecified site Chronicity: chronic Presence of tophus: without tophus (7) Hyperlipidemia Code(s): E78.5 - HYPERLIPIDEMIA, UNSPECIFIED Status: Chronic Qualifiers: Hyperlipidemia type: unspecified Qualified Code(s): E78.5 - Hyperlipidemia, unspecified (8) Hypertension Code(s): I10 - ESSENTIAL (PRIMARY) HYPERTENSION Status: Chronic Qualifiers: Hypertension type: essential hypertension Qualified Code(s): I10 - Essential (primary) hypertension - Plan is on nasal canula, dexamethasone, lovenox dvt prophylaxis, no remdesevir due to renal issue continue asp, lipitor, flomax and proscar. May dc ceftriaxone after 2 days for uti?. PT to mobilize as tolerated encephalopathy acute resolved sec to covid pna and dehydration.
[2020-07-25] MEDS: cefTRIAXone\\ROCEPHIN 1 GM in Sodium Chloride 0.9% 100 ML IVPB SCH (17:10)
[2020-07-25] MEDS: Famotidine 20 MG TAB PO SCH (19:38)
[2020-07-25] MEDS: Tamsulosin HCl 0.4 MG CAP PO SCH (19:38)
[2020-07-25] MEDS: Atorvastatin Calcium 10 MG TAB PO SCH (19:38)
[2020-07-26 05:42] LABS: Band 5 % (5-11); Hemoglobin 8.6 g/dL (14.0-18.0); Hypochromia SLIGHT = 6-15 cells (100X) (0-5/hpf); Lymphocytes 8 % (21-51); MDiff Complete? YES; Mean Corpuscular HGB CONC 32.6 g/dL (32.0-36.0); Mean Corpuscular Hemoglobin 31.2 pg (27.0-31.0); Mean Platelet Volume 10.5 fL (7.4-10.4); Monocytes 1 % (0-10); Neutrophil 86 % (42-75); Platelet Count 240 thou/uL (130-400); Platelet Morphology Comment Appears Adequate; RBC Distribution Width 13.7 % (11.5-14.5); Red Blood Cell (RBC) Count 2.74 mill/uL (4.70-6.10); White Blood Cell (WBC) Count 18.1 thou/uL (4.8-10.8)
[2020-07-26 05:46] LABS: Anion Gap 17 mmol/L (10-20); BUN (Urea Nitrogen) 76 mg/dL (8.4-25.7); CRP (Inflammatory) 8.44 mg/dL (= or < 0.5); Calc. Creatinine Clearance 19 mL/min (70-130); Calcium 9.2 mg/dL (7.8-10.44); Carbon Dioxide 22 mmol/L (23-31); Chloride 107 mmol/L (98-107); Estimated GFR-MDRD 28; Glucose 110 mg/dL (83-110); Potassium 4.6 mmol/L (3.5-5.1); Sodium 141 mmol/L (136-145)
[2020-07-26] MEDS: Enoxaparin Sodium 40 MG/0.4 ML SYRINGE SC SCH (07:32)
[2020-07-26] MEDS: Sodium Bicarbonate Tab 325 MG TAB PO SCH ×3 (07:33→21:34)
[2020-07-26] MEDS: Dexamethasone 4 MG TAB PO SCH (07:33)
[2020-07-26] MEDS: Aspirin Chewable 81 MG TAB PO SCH (07:33)
[2020-07-26] MEDS: Finasteride 5 MG TAB PO SCH (07:34)
[2020-07-26] MEDS: Ferrous Sulfate 325 MG TAB PO SCH (07:34)
[2020-07-26] MEDS: Allopurinol 300 MG TAB PO SCH (07:34)
[2020-07-26] MEDS: Gabapentin 300 MG CAP PO SCH (07:34)
--- NOTE | 2020-07-26 14:52 | PDOC.DS.DS ---
Provider - Provider Date of Admission: 07/23/20 20:11 Date of Discharge: 07/26/20 Admitting Provider: Joshua San Primary Care Physician: KATHIE PCP PROVIDER Course - Hospital Course Hospital Course: This is an 89-year-old male with past medical history of sick sinus syndrome, hypertension, hyperlipidemia, GERD, peripheral neuropathy, and iron deficiency anemia who was brought to the ER by his family due to confusion. The patient was diagnosed with COVID-19 infection prior to admission. His chest x-ray revealed bilateral opacities and the patient was found to be slightly hypoxic. He was admitted to the hospital placed on dexamethasone and supplemental oxygen which was subsequently weaned off as the patient's condition improved. He was placed on IV antibiotics empirically and those were discontinued as his condition improved. At this time, the patient does not have any indications for further hospitalization. Resuscitation Status: 07/24/20 00:48 Resuscitation Status Routine Co-Sign Provider: Resuscitation Status: FULL: Full Resuscitation Discussed with: patient - Labs Lab Results: 07/26/20 04:49 07/26/20 04:49 Abnormal Lab Results - Last 48 hrs 07/25/20 05:07: Carbon Dioxide 16 L, BUN 73 H, Creatinine 2.85 H, C-Reactive Protein 15.01 H 07/25/20 05:07: WBC 17.2 H, RBC 2.88 L, Hgb 8.8 L, Hct 28.5 L, MCV 99.1 H, MCHC 30.9 L, MPV 10.5 H, Neutrophils % 88.6 H, Lymphocytes % 7.5 L, Neutrophils # 15.2 H, Monocytes # 0.6 H 07/26/20 04:49: Carbon Dioxide 22 L, BUN 76 H, Creatinine 2.59 H, C-Reactive Protein 8.44 H 07/26/20 04:49: WBC 18.1 H, RBC 2.74 L, Hgb 8.6 L, Hct 26.3 L, MCH 31.2 H, MPV 10.5 H, Neutrophils % (Manual) 86 H, Lymphocytes % (Manual) 8 L Microbiology - Entire Visit 07/23/20 16:43 Venous blood - Right Arm Blood Culture - Preliminary NO GROWTH AT 48 HOURS 07/23/20 16:42 Venous blood - Left Arm Blood Culture - Preliminary NO GROWTH AT 48 HOURS 07/23/20 16:30 Urine voided Urine Culture - Final Proteus mirabilis - Physical Exam Vitals: Vital Signs (12 hours) Temp Pulse Resp BP Pulse Ox 07/26/20 11:20 97.8 F 71 18 113/56 L 96 07/26/20 07:40 98.1 F 74 18 142/62 H 99 07/26/20 06:14 18 96 Weight Admit Weight 153 lb 8 oz Weight 152 lb 4.8 oz Physical Exam: The patient was seen and examined on the day of discharge. Problem - Problem (1) Acute respiratory failure with hypoxia Code(s): J96.01 - ACUTE RESPIRATORY FAILURE WITH HYPOXIA Status: Acute (2) Pneumonia due to COVID-19 virus Code(s): U07.1 - COVID-19; J12.89 - OTHER VIRAL PNEUMONIA Status: Acute (3) Pazao-pd-rvcilfx kidney injury Code(s): N17.9 - ACUTE KIDNEY FAILURE, UNSPECIFIED; N18.9 - CHRONIC KIDNEY DISEASE, UNSPECIFIED Status: Acute Qualifiers: Chronic kidney disease stage: stage 4 (severe) (4) Dehydration Code(s): E86.0 - DEHYDRATION Status: Acute (5) Anemia Code(s): D64.9 - ANEMIA, UNSPECIFIED Status: Chronic Qualifiers: Anemia type: unspecified type Qualified Code(s): D64.9 - Anemia, unspecified Plan - Discharge Medications Prescriptions: Dexamethasone 6 mg PO DAILY-AC #3 tablet Home Medications: Medication Instructions Recorded Confirmed Type Gabapentin [Neurontin] 600 mg PO DAILY 04/05/13 07/23/20 History Allopurinol 300 mg PO DAILY 06/05/16 07/23/20 History Finasteride 5 mg PO DAILY 06/05/16 07/23/20 History Pravastatin Sodium 40 mg PO QPM 06/05/16 07/23/20 History Ferrous Sulfate 325 mg PO DAILY 04/20/20 07/23/20 History Omeprazole 20 mg PO DAILY 04/20/20 07/23/20 History Tamsulosin HCl 0.4 mg PO HS 04/20/20 07/23/20 History Magnesium Oxide 400 mg PO DAILY #4 tablet 04/22/20 07/23/20 Rx Aspirin Chewable [Aspirin Chewable 81 mg PO DAILY 07/23/20 07/23/20 History Tablet] Benzonatate [Tessalon] 100 mg PO TID PRN 07/24/20 07/24/20 History Dexamethasone 6 mg PO DAILY-AC #3 tablet 07/26/20 Rx Allergies: No Known Allergies Allergy (Verified 07/23/20 23:42) - Follow up Plan Referrals: PROVIDER,NO PCP [Primary Care Provider] - Disposition: HOME Quality - Care Measures CORE MEASURES:: N/A
[2020-07-26] MEDS: cefTRIAXone\\ROCEPHIN 1 GM in Sodium Chloride 0.9% 100 ML IVPB SCH (16:04)
[2020-07-26] MEDS: Famotidine 20 MG TAB PO SCH (21:33)
[2020-07-26] MEDS: Tamsulosin HCl 0.4 MG CAP PO SCH (21:34)
[2020-07-26] MEDS: Atorvastatin Calcium 10 MG TAB PO SCH (21:34)
[2020-07-27 05:37] LABS: #Lymphocytes 1.1 thou/uL (1.20-3.40); #Monocytes 0.8 thou/uL (0.11-0.59); #Neutrophils 12.8 thou/uL (1.40-6.50); %Basophils 0.3 % (0.0-1.0); %Eosinophils 0.1 % (0.0-10.0); %Lymphocytes 7.4 % (21.0-51.0); %Monocytes 5.3 % (0.0-10.0); %Neutrophils 86.9 % (42.0-75.0); Hemoglobin 8.8 g/dL (14.0-18.0); Mean Corpuscular HGB CONC 31.6 g/dL (32.0-36.0); Mean Corpuscular Hemoglobin 29.9 pg (27.0-31.0); Mean Corpuscular Volume 94.7 fL (78.0-98.0); Mean Platelet Volume 10.2 fL (7.4-10.4); Platelet Count 260 thou/uL (130-400); RBC Distribution Width 13.8 % (11.5-14.5); Red Blood Cell (RBC) Count 2.95 mill/uL (4.70-6.10); White Blood Cell (WBC) Count 14.7 thou/uL (4.8-10.8)
[2020-07-27 05:55] LABS: Anion Gap 19 mmol/L (10-20); BUN (Urea Nitrogen) 74 mg/dL (8.4-25.7); Calc. Creatinine Clearance 22 mL/min (70-130); Calcium 9.1 mg/dL (7.8-10.44); Carbon Dioxide 20 mmol/L (23-31); Chloride 107 mmol/L (98-107); Estimated GFR-MDRD 34; Glucose 108 mg/dL (83-110); Sodium 142 mmol/L (136-145)
[2020-07-27] MEDS: Enoxaparin Sodium 30 MG/0.3 ML SYRINGE SC SCH (08:41)
[2020-07-27] MEDS: Aspirin Chewable 81 MG TAB PO SCH (08:42)
[2020-07-27] MEDS: Finasteride 5 MG TAB PO SCH (08:42)
[2020-07-27] MEDS: Dexamethasone 4 MG TAB PO SCH (08:42)
[2020-07-27] MEDS: Allopurinol 300 MG TAB PO SCH (08:42)
[2020-07-27] MEDS: Ferrous Sulfate 325 MG TAB PO SCH (08:42)
[2020-07-27] MEDS: Gabapentin 300 MG CAP PO SCH (08:42)
[2020-07-27] MEDS: Sodium Bicarbonate Tab 325 MG TAB PO SCH ×3 (08:43→19:49)
--- NOTE | 2020-07-27 12:40 | PDOC.HOSPP ---
- Subjective Encounter Date: 07/27/20 - Objective Vital Signs & Weight: Vital Signs (12 hours) Temp Pulse Resp BP Pulse Ox 07/27/20 08:00 98.4 F 108 H 18 147/74 H 93 L 07/27/20 03:00 98.0 F 82 26 H 133/74 89 L 07/27/20 01:23 95 Weight Admit Weight 153 lb 8 oz Weight 152 lb 4.8 oz I&O: 07/26/20 07/27/20 07/28/20 06:59 06:59 06:59 Intake Total 1110 340 240 Output Total 375 300 Balance 735 40 240 Result Diagrams: 07/27/20 04:51 07/27/20 04:51 Hospitalist ROS - Medication Medications: Active Medications Generic Name Dose Route Start Last Admin Trade Name Freq PRN Reason Stop Dose Admin Allopurinol 300 mg 07/24/20 09:00 07/27/20 08:42 Allopurinol 300 Mg Tab PO 300 mg DAILY MIK Administration Aspirin 81 mg 07/24/20 09:00 07/27/20 08:42 Aspirin Chewable 81 Mg Tab PO 81 mg DAILY MIK Administration Atorvastatin Calcium 10 mg 07/24/20 21:00 07/26/20 21:34 Atorvastatin Calcium 10 Mg Tab PO 10 mg QPM MIK Administration Dexamethasone 6 mg 07/24/20 08:00 07/27/20 08:42 Dexamethasone 4 Mg Tab PO 6 mg QAM-WM MIK Administration Enoxaparin Sodium 30 mg 07/27/20 09:00 07/27/20 08:41 Enoxaparin Sodium 30 Mg/0.3 Ml Syringe SC 30 mg 0900 MIK Administration Famotidine 20 mg 07/23/20 21:00 07/26/20 21:33 Famotidine 20 Mg Tab PO 20 mg 2100 MIK Administration Ferrous Sulfate 325 mg 07/25/20 09:00 07/27/20 08:42 Ferrous Sulfate 325 Mg Tab PO 325 mg DAILY MIK Administration Finasteride 5 mg 07/24/20 09:00 07/27/20 08:42 Finasteride 5 Mg Tab PO 5 mg DAILY MIK Administration Gabapentin 600 mg 07/24/20 09:00 07/27/20 08:42 Gabapentin 300 Mg Cap PO 600 mg DAILY MIK Administration Ceftriaxone Sodium 1 gm/ 100 mls @ 200 mls/hr 07/24/20 16:00 07/26/20 16:04 Sodium Chloride IVPB 100 mls Q24HR MIK Administration Sodium Bicarbonate 650 mg 07/24/20 15:00 07/27/20 08:43 Sodium Bicarbonate Tab 325 Mg Tab PO 650 mg TID MIK Administration Sodium Chloride 10 ml 07/23/20 20:16 07/26/20 21:34 Flush - Normal Saline 10 Ml Syringe IVF 10 ml PRN PRN Administration Saline Flush Tamsulosin HCl 0.4 mg 07/24/20 21:00 07/26/20 21:34 Tamsulosin Hcl 0.4 Mg Cap PO 0.4 mg HS MIK Administration - Exam General Appearance: awake alert ENT: normocephalic atraumatic Neck: supple, no JVD Heart: RRR Respiratory: normal chest expansion, no tachypnea Gastrointestinal: soft Extremities: no cyanosis, no clubbing Neurological: cranial nerve grossly intact, no focal deficits Hosp A/P (1) Acute respiratory failure with hypoxia Code(s): J96.01 - ACUTE RESPIRATORY FAILURE WITH HYPOXIA Status: Acute (2) Pneumonia due to COVID-19 virus Code(s): U07.1 - COVID-19; J12.89 - OTHER VIRAL PNEUMONIA Status: Acute (3) Vohed-vu-vsuzovi kidney injury Code(s): N17.9 - ACUTE KIDNEY FAILURE, UNSPECIFIED; N18.9 - CHRONIC KIDNEY DIS EASE, UNSPECIFIED Status: Acute Qualifiers: Chronic kidney disease stage: stage 4 (severe) (4) Dehydration Code(s): E86.0 - DEHYDRATION Status: Acute (5) Anemia Code(s): D64.9 - ANEMIA, UNSPECIFIED Status: Chronic Qualifiers: Anemia type: unspecified type Qualified Code(s): D64.9 - Anemia, unspecified - Plan This is an 89-year-old male with past medical history of sick sinus syndrome, hypertension, hyperlipidemia, GERD, peripheral neuropathy, and iron deficiency anemia who was brought to the ER by his family due to confusion. The patient was diagnosed with COVID-19 infection prior to admission. His chest x-ray revealed bilateral opacities and the patient was found to be slightly hypoxic. He was admitted to the hospital placed on dexamethasone and supplemental oxygen which was subsequently weaned off as the patient's condition improved. The patient's oxygen saturation dropped upon ambulation yesterday. Continue supplemental oxygen, dexamethasone, and antibiotics.
[2020-07-27] MEDS: cefTRIAXone\\ROCEPHIN 1 GM in Sodium Chloride 0.9% 100 ML IVPB SCH (16:27)
[2020-07-27] MEDS: Famotidine 20 MG TAB PO SCH (19:49)
[2020-07-27] MEDS: Tamsulosin HCl 0.4 MG CAP PO SCH (19:50)
[2020-07-27] MEDS: Atorvastatin Calcium 10 MG TAB PO SCH (19:50)
[2020-07-28 05:49] LABS: #Lymphocytes 1.4 thou/uL (1.20-3.40); #Monocytes 0.7 thou/uL (0.11-0.59); #Neutrophils 8.5 thou/uL (1.40-6.50); %Basophils 0.5 % (0.0-1.0); %Eosinophils 0.2 % (0.0-10.0); %Lymphocytes 13.6 % (21.0-51.0); %Monocytes 6.5 % (0.0-10.0); %Neutrophils 79.3 % (42.0-75.0); Hemoglobin 8.7 g/dL (14.0-18.0); Mean Corpuscular HGB CONC 31.5 g/dL (32.0-36.0); Mean Corpuscular Hemoglobin 30.5 pg (27.0-31.0); Mean Corpuscular Volume 96.7 fL (78.0-98.0); Mean Platelet Volume 9.8 fL (7.4-10.4); Platelet Count 303 thou/uL (130-400); RBC Distribution Width 13.7 % (11.5-14.5); Red Blood Cell (RBC) Count 2.86 mill/uL (4.70-6.10); White Blood Cell (WBC) Count 10.7 thou/uL (4.8-10.8)
[2020-07-28 06:07] LABS: Anion Gap 19 mmol/L (10-20); BUN (Urea Nitrogen) 64 mg/dL (8.4-25.7); Calc. Creatinine Clearance 24 mL/min (70-130); Calcium 9.6 mg/dL (7.8-10.44); Carbon Dioxide 19 mmol/L (23-31); Chloride 109 mmol/L (98-107); Estimated GFR-MDRD 38; Glucose 114 mg/dL (83-110); Potassium 4.2 mmol/L (3.5-5.1); Sodium 143 mmol/L (136-145)
[2020-07-28] MEDS: Enoxaparin Sodium 30 MG/0.3 ML SYRINGE SC SCH (11:18)
[2020-07-28] MEDS: Gabapentin 300 MG CAP PO SCH (11:19)
[2020-07-28] MEDS: Aspirin Chewable 81 MG TAB PO SCH (11:19)
[2020-07-28] MEDS: Finasteride 5 MG TAB PO SCH (11:20)
[2020-07-28] MEDS: Allopurinol 300 MG TAB PO SCH (11:20)
[2020-07-28] MEDS: Sodium Bicarbonate Tab 325 MG TAB PO SCH ×3 (11:20→21:59)
[2020-07-28] MEDS: Ferrous Sulfate 325 MG TAB PO SCH (11:20)
[2020-07-28] MEDS: Dexamethasone 4 MG TAB PO SCH (11:20)
--- NOTE | 2020-07-28 14:39 | PDOC.HOSPP ---
- Subjective Encounter Date: 07/28/20 - Objective Vital Signs & Weight: Vital Signs (12 hours) Temp Pulse Resp BP Pulse Ox 07/28/20 11:21 98.9 F 101 H 18 144/64 H 97 07/28/20 04:53 98.2 F 75 18 115/55 L 93 L Weight Admit Weight 153 lb 8 oz Weight 152 lb 4.8 oz I&O: 07/27/20 07/28/20 07/29/20 06:59 06:59 06:59 Intake Total 340 960 Output Total 300 400 Balance 40 560 Result Diagrams: 07/28/20 05:26 07/28/20 05:26 Hospitalist ROS - Medication Medications: Active Medications Generic Name Dose Route Start Last Admin Trade Name Freq PRN Reason Stop Dose Admin Allopurinol 300 mg 07/24/20 09:00 07/28/20 11:20 Allopurinol 300 Mg Tab PO 300 mg DAILY MIK Administration Aspirin 81 mg 07/24/20 09:00 07/28/20 11:19 Aspirin Chewable 81 Mg Tab PO 81 mg DAILY MIK Administration Atorvastatin Calcium 10 mg 07/24/20 21:00 07/27/20 19:50 Atorvastatin Calcium 10 Mg Tab PO 10 mg QPM MIK Administration Dexamethasone 6 mg 07/24/20 08:00 07/28/20 11:20 Dexamethasone 4 Mg Tab PO 6 mg QAM-WM MIK Administration Enoxaparin Sodium 30 mg 07/27/20 09:00 07/28/20 11:18 Enoxaparin Sodium 30 Mg/0.3 Ml Syringe SC 30 mg 0900 MIK Administration Famotidine 20 mg 07/23/20 21:00 07/27/20 19:49 Famotidine 20 Mg Tab PO 20 mg 2100 MIK Administration Ferrous Sulfate 325 mg 07/25/20 09:00 07/28/20 11:20 Ferrous Sulfate 325 Mg Tab PO 325 mg DAILY MIK Administration Finasteride 5 mg 07/24/20 09:00 07/28/20 11:20 Finasteride 5 Mg Tab PO 5 mg DAILY MIK Administration Gabapentin 600 mg 07/24/20 09:00 07/28/20 11:19 Gabapentin 300 Mg Cap PO 600 mg DAILY MIK Administration Ceftriaxone Sodium 1 gm/ 100 mls @ 200 mls/hr 07/24/20 16:00 07/27/20 16:27 Sodium Chloride IVPB 100 mls Q24HR MIK Administration Sodium Bicarbonate 650 mg 07/24/20 15:00 07/28/20 11:20 Sodium Bicarbonate Tab 325 Mg Tab PO 650 mg TID MIK Administration Sodium Chloride 10 ml 07/23/20 20:16 07/28/20 11:20 Flush - Normal Saline 10 Ml Syringe IVF 10 ml PRN PRN Administration Saline Flush Tamsulosin HCl 0.4 mg 07/24/20 21:00 07/27/20 19:50 Tamsulosin Hcl 0.4 Mg Cap PO 0.4 mg HS MIK Administration - Exam General Appearance: awake alert Neck: supple, no JVD Heart: RRR Respiratory: normal chest expansion, no tachypnea, rhonchi Gastrointestinal: soft Neurological: cranial nerve grossly intact Hosp A/P (1) Acute respiratory failure with hypoxia Code(s): J96.01 - ACUTE RESPIRATORY FAILURE WITH HYPOXIA Status: Acute (2) Pneumonia due to COVID-19 virus Code(s): U07.1 - COVID-19; J12.89 - OTHER VIRAL PNEUMONIA Status: Acute (3) Wjivt-dd-ilpyipr kidney injury Code(s): N17.9 - ACUTE KIDNEY FAILURE, UNSPECIFIED; N18.9 - CHRONIC KIDNEY DISEASE, UNSPECIFIED Status: Acute Qualifiers: Chronic kidney disease stage: stage 4 (severe) (4) Dehydration Code(s): E86.0 - DEHYDRATION Status: Acute (5) Anemia Code(s): D64.9 - ANEMIA, UNSPECIFIED Status: Chronic Qualifiers: Anemia type: unspecified type Qualified Code(s): D64.9 - Anemia, unspecified - Plan This is an 89-year-old male with past medical history of sick sinus syndrome, hypertension, hyperlipidemia, GERD, peripheral neuropathy, and iron deficiency anemia who was brought to the ER by his family due to confusion. The patient was diagnosed with COVID-19 infection prior to admission. His chest x-ray revealed bilateral opacities and the patient was found to be slightly hypoxic. He was admitted to the hospital placed on dexamethasone and supplemental oxygen. His condition is improving. He is on minimal oxygen requirements. Check chest x-ray.
--- NOTE | 2020-07-28 15:48 | RAD ---
PORTABLE CHEST ONE VIEW: Date: 07-28-2020 Time: 2:54 p.m. History: Hypoxia Comparison: 07-23-2020 FINDINGS: The heart size is normal. The aorta is tortuous. Left sided pacemaker. Mild patchy opacities are agai n seen, suspicious for Covid 19 pneumonia. No pneumothoraces or pleural effusions are identified. IMPRESSION: As above. POS: NIECY
[2020-07-28] MEDS: cefTRIAXone\\ROCEPHIN 1 GM in Sodium Chloride 0.9% 100 ML IVPB SCH (16:54)
[2020-07-28] MEDS: Atorvastatin Calcium 10 MG TAB PO SCH (21:59)
[2020-07-28] MEDS: Tamsulosin HCl 0.4 MG CAP PO SCH (21:59)
[2020-07-28] MEDS: Amoxicillin/Potassium Clav 875 MG TAB PO SCH (22:00)
[2020-07-28] MEDS: Famotidine 20 MG TAB PO SCH (22:00)
[2020-07-29] MEDS: Sodium Bicarbonate Tab 325 MG TAB PO SCH ×2 (10:00→15:25)
[2020-07-29] MEDS: Aspirin Chewable 81 MG TAB PO SCH (10:01)
[2020-07-29] MEDS: Gabapentin 300 MG CAP PO SCH (10:01)
[2020-07-29] MEDS: Dexamethasone 4 MG TAB PO SCH (10:01)
[2020-07-29] MEDS: Amoxicillin/Potassium Clav 875 MG TAB PO SCH (10:01)
[2020-07-29] MEDS: Allopurinol 300 MG TAB PO SCH (10:02)
[2020-07-29] MEDS: Enoxaparin Sodium 30 MG/0.3 ML SYRINGE SC SCH (10:02)
[2020-07-29] MEDS: Finasteride 5 MG TAB PO SCH (10:02)
[2020-07-29] MEDS: Ferrous Sulfate 325 MG TAB PO SCH (10:02)
[2020-07-29 10:56] VITALS: BMI 23.8
[2020-07-29 17:05] VITALS: BP 132/60; TEMP 97.9
--- NOTE | 2020-07-29 18:04 | PRG ---
DATE OF SERVICE: 07/29/2020 SUBJECTIVE: The patient appears comfortable at rest. His breathing is not labored. Denies any pain. OBJECTIVE: VITAL SIGNS: His temperature has been normal, respiratory rate 18, and he is saturating 95% on room air. LUNGS: Symmetric, clear breath sounds. HEART: S1 and S2, regular rate. ABDOMEN: Soft. Not distended. EXTREMITIES: Moves extremities equally. LABORATORY DATA: White cell count 10.7, hemoglobin 8.7, platelets 303. D-dimer 2.41. Creatinine is down to 2.0. GFR is 38. Ferritin was checked a few days ago, it was 8600. CRP was 8.44, which is downward trend. I repeat chest x-ray yesterday, which showed mild patchy opacities. ASSESSMENT AND DISCUSSION: Sick sinus syndrome, mhcnhsmk-rc-dcehhe COVID pneumonia, seems to be improving, although his markers are still quite elevated, so we are not seeing any precipitous decline thus far. This is the 8th or 9th day of illness. Job ID: [id number]
--- NOTE | 2020-07-30 12:03 | PQF ---
CLINICAL DOCUMENTATION CLARIFICATION FORM: Dear Dr. Delia Magdaleno Date: 07-30-20 Please exercise your independent, professional judgment in responding to the clarification form. Clinical indicators are provided on the bottom of this form for your review. Please check appropriate box(es): [ ] Viral Sepsis due to COVID-19/PNA [ >] Severe Viral Sepsis due to COVID-19/PNA w/ Acute Hypoxic Respiratory [ ] COVID-19/PNA only no Sepsis [ ] Other diagnosis [ ] Unable to determine For continuity of documentation, please document condition throughout progress notes and discharge summary. Thank You. To be completed by CDI/Coding staff for physician review: CLINICAL INDICATORS - SIGNS / SYMPTOMS / LABS / RESULTS AND LOCATION IN MR ED: COVID-19 Pneumonia; [facility]; AMS; elevated troponin, hypoxia *SEPSIS ALERT * P 70-117 * RR 17-25 * T101.3 RECTAL * Confused per family for a few days LABS: WBC 11.24-11-29 6.5-18.1 11.25 H&P ([facility]); COVID-19 pneumonia; acute on chronic kidney dx; 11.25 PN (Affram): acute hypoxic respiratory failure; Pneumonia d/t Covid; acute on chronic CKD stage 4; UTI PN (Jagadeeshan): encephalopathy acute resolved sec to COVID PNA and dehydration RISK FACTORS / RESULTS AND LOCATION IN MR 11.25 H&P ([facility]) *Seen in this ER 11.19 dx w/COVID-19 TREATMENTS / RESULTS AND LOCATION IN MR 11.25 H&P ([facility]ri[facility]) * Will continue dexamethasone daily *consulted ID (Dr. King) *Continue Azithromycin, Rocephin, added albuterol inhaler * Blood cultures obtained MAR: Rocephin IV .-07.27 CDS Signature: Kathy Sanches RN, CCDS Phone #: [phone] [email or web address] This is a permanent part of the Medical Record [facility]
== END 2020-07-29 19:17 | disposition home or self-care (01) | DRG 871 ==
LOC: ERS 15:43 → 2SW 20:11
PROVIDERS: ADMIT Internal Medicine; ATTEND Internal Medicine
PROC: 8E0ZXY6 Isolation (ICD-10-PCS; principal; 2020-07-23)
DX: A41.89 Other specified sepsis (principal); U07.1 COVID-19; J12.89 Other viral pneumonia; J96.01 Acute respiratory failure with hypoxia; N17.9 Acute kidney failure, unspecified; N39.0 Urinary tract infection, site not specified; G93.49 Other encephalopathy; N18.4 Chronic kidney disease, stage 4 (severe); R65.20 Severe sepsis without septic shock; G89.29 Other chronic pain; N40.0 Benign prostatic hyperplasia without lower urinary tract symptoms; K21.9 Gastro-esophageal reflux disease without esophagitis; M54.9 Dorsalgia, unspecified; E86.0 Dehydration; I49.5 Sick sinus syndrome; I12.9 Hypertensive chronic kidney disease with stage 1 through stage 4 chronic kidney disease, or unspecified chronic kidney disease; D64.9 Anemia, unspecified; G62.9 Polyneuropathy, unspecified; E78.5 Hyperlipidemia, unspecified; M10.9 Gout, unspecified; Z95.0 Presence of cardiac pacemaker; Z79.82 Long term (current) use of aspirin
CPT/HCPCS: 36415; 70450; 71045; 71250; 72125; 80048; 80053; 81003; 81015; 82553; 82728; 83605; 83615; 83735; 84145; 84484; 85025; 85379; 85610; 85730; 86140; 87040; 87077; 87086; 87186; 93005; 96365; 96366; 96367; 96372; 96375; J0456; J0696; J1100; J1650; J3490; J8540

== ENCOUNTER 2020-07-31 09:09 | Inpatient (IN) | payer MEDICARE ==
[2020-07-31 09:54] LABS: #Eosinphils 0.4 thou/uL (0.0-0.7); #Neutrophils 10.3 thou/uL (1.40-6.50); %Basophils 0.3 % (0.0-1.0); %Eosinophils 2.8 % (0.0-10.0); %Lymphocytes 14.8 % (21.0-51.0); %Monocytes 6.9 % (0.0-10.0); %Neutrophils 75.2 % (42.0-75.0); Hemoglobin 9.1 g/dL (14.0-18.0); Mean Corpuscular Hemoglobin 31.5 pg (27.0-31.0); Mean Corpuscular Volume 98.4 fL (78.0-98.0); Mean Platelet Volume 9.7 fL (7.4-10.4); Platelet Count 304 thou/uL (130-400); RBC Distribution Width 14.9 % (11.5-14.5); Red Blood Cell (RBC) Count 2.89 mill/uL (4.70-6.10); White Blood Cell (WBC) Count 13.7 thou/uL (4.8-10.8)
--- NOTE | 2020-07-31 09:57 | RAD ---
Chest AP view INDICATION: Difficulty breathing history of Covid positive status COMPARISON: July 28, 2020 FINDINGS: Lungs: Bilateral pneumonia appears slightly worsened in the lower lobes. Patchy greater groundglass opacity remains within the right upper lobe. Cardiac silhouette: The cardiomediastinal silhouette appears within normal limits. Pulmonary vasculature: Normal Pleural spaces: No pleural effusion or pneumothorax is demonstrated. Upper abdomen: No abnormality seen. Osseous structures: No acute osseous abnormality. Additional findings: Pacemaker is unchanged. IMPRESSION: Worsening pneumonia within the lower lobes. Persistent groundglass opacity in the right upper lobe.
[2020-07-31 10:11] LABS: ALT (SGPT) 26 U/L (8-55); AST (SGOT) 20 U/L (5-34); Albumin 3.1 g/dL (3.4-4.8); Alkaline Phosphatase 54 U/L (40-110); Anion Gap 16 mmol/L (10-20); BUN (Urea Nitrogen) 46 mg/dL (8.4-25.7); Bilirubin, Total 0.6 mg/dL (0.2-1.2); Calc. Creatinine Clearance 0 mL/min (70-130); Calcium 8.8 mg/dL (7.8-10.44); Carbon Dioxide 23 mmol/L (23-31); Chloride 105 mmol/L (98-107); Globulin 3.2 g/dL (2.4-3.5); Glucose 97 mg/dL (83-110); Potassium 4.3 mmol/L (3.5-5.1); Protein, Total 6.3 g/dL (5.8-8.1); Sodium 140 mmol/L (136-145)
[2020-07-31] MEDS ORDERED: Guaifenesin DM 100-10/5 ML UDCUP PO PRN (11:31)
[2020-07-31] MEDS ORDERED: Acetaminophen 325 MG TAB PO PRN (11:31)
[2020-07-31] MEDS ORDERED: Bisacodyl 10 MG SUPP PR PRN (11:31)
[2020-07-31] MEDS ORDERED: Senokot S 8.6-50 MG TAB PO PRN (11:31)
[2020-07-31] MEDS ORDERED: Ondansetron PF 4 MG/2 ML Vial IVP PRN (11:31)
[2020-07-31] MEDS ORDERED: Benzonatate 100 MG CAP PO PRN (11:31)
[2020-07-31] MEDS ORDERED: Calcium Carbonate 500 MG ChewTAB PO PRN (11:31)
--- NOTE | 2020-07-31 13:00 | CT ---
CT of the chest without contrast: 07/31/2020 COMPARISON: 07/23/2020 HISTORY: Reevaluate Covid pneumonia, shortness of breath with hypoxia and confusion TECHNIQUE: Axial CT imaging through the chest without contrast at 5 mm intervals with coronal and sag ittal reformatted imaging FINDINGS: The lack of contrast limits assessment of the imaged viscera, the vascular structures, and for lymphadenopathy. Multilead left-sided transvenous pacing device present. Limited assessment of the upper abdomen demon strates atherosclerotic calcification of the imaged abdominal aorta and its branches. Coronary arterial calcifications are noted. There is no pneumothorax seen on either side. Limited assessment for lymphadenopathy within the chest appears unremarkable. There are no new areas of hazy linear interstitial density with superimposed groundglass opacity with in the medial left suprahilar region, the left perihilar region, and the inferior posterior lateral aspect of the lingula consistent with interval development of left upper lobe disease. There is multi focal interstitial and alveolar opacity/groundglass opacity throughout the left lower lobe with interval worsening involving the superior segment of the left lower lobe. Similar peripheral intersti tial thickening with groundglass opacity noted throughout the right upper lobe, some of which is new and some of which has worsened since the prior CT. No significant interval change in diffuse inte rstitial/groundglass opacity within the right middle lobe aside from mild interval inferior anterior right middle lobe worsening. There is extensive interstitial and groundglass opacity throughout the right lower lobe, similar when compared to prior imaging. Review of the osseous structures demonstrates stable fracture deformities at the T11 and T5 levels. IMPRESSION: Extensive interstitial and alveolar/groundglass opacity bilaterally, imaging characterist ics most consistent with Covid pneumonia. These pulmonary parenchymal opacities have worsened since the 07/23/2020 CT as detailed above.
--- NOTE | 2020-07-31 13:07 | HP ---
REASON FOR ADMISSION: Worsening COVID pneumonia. HISTORY OF PRESENTING ILLNESS: The patient was brought to emergency room by his daughter, saying he was confused. He was also having shortness of breath at home. He was recently discharged from the hospital on the 29 of July. The patient was given dexamethasone and he was on nasal cannula. Currently, he is fairly oriented and responds to questions, but does not know why he was brought to the hospital. Has cough which is mostly dry. Has had off and on mild fever at home. No complaints of chest pain or palpitation. No complaints of diarrhea. He states he has been eating good. PAST MEDICAL AND SURGICAL HISTORY: History of chronic atrial fibrillation, pacemaker, back pain, benign prostatic hypertrophy, COVID pneumonia diagnosed on the 23 of July, hypertension, dyslipidemia, peripheral neuropathy, chronic anemia, right hip repair. PERSONAL HISTORY: Does not abuse alcohol or drugs. No history of smoking. Lives with his family. Ambulates with a cane. FAMILY HISTORY: Positive for heart disease, hypertension, dyslipidemia, and arthritis. ALLERGIES: NO KNOWN DRUG ALLERGIES. CURRENT MEDICATIONS: 1. The patient was discharged on dexamethasone 6 mg daily for a total of three days on the . 2. Flomax 0.4 mg p.o. at bedtime. 3. Pravastatin 40 mg p.o. q.p.m. 4. Omeprazole 20 mg p.o. daily. 5. Neurontin 600 mg p.o. daily. 6. Finasteride 5 mg daily. 7. Ferrous sulfate 325 mg p.o. daily. 8. Aspirin 81 mg p.o. daily. 9. Allopurinol 300 mg p.o. daily. 10. Magnesium oxide 400 mg p.o. daily. CODE STATUS: Full. REVIEW OF SYSTEMS: CONSTITUTIONAL: Negative for weight loss or gain, ability to conduct usual activities. SKIN: Negative for rash, itching. EYES: Negative for double vision, pain. ENT/MOUTH: Negative for nose bleeding, neck stiffness, pain, tenderness. CARDIOVASCULAR: Negative for palpitations, dyspnea on exertion, orthopnea. RESPIRATORY: Negative for shortness of breath, wheezing, cough, hemoptysis, fever or night sweats. GASTROINTESTINAL: Negative for poor appetite, abdominal pain, heartburn, nausea, vomiting, constipation, or diarrhea. GENITOURINARY: Negative for urgency, frequency, dysuria, nocturia. MUSCULOSKELETAL: Negative for pain, swelling. NEUROLOGIC/PSYCHIATRIC: Negative for anxiety, depression. ALLERGY/IMMUNOLOGIC: Negative for skin rash, bleeding tendency. PHYSICAL EXAMINATION: GENERAL: The patient is an 89-year-old male, who is currently not in any acute distress. VITAL SIGNS: He is saturating 96% on 3 L of oxygen, blood pressure 142/70, pulse 96 per minute, respiratory rate 20, temperature 99.2 degrees Fahrenheit. NECK: Supple. No elevated JVD. HEENT: Eyes; extraocular muscles intact. Pupils reacting to light. Oral cavity, mucous membranes are dry. No exudates or congestion. CARDIOVASCULAR: S1-S2 heard, regular rhythm. RESPIRATORY: Air entry 1+ bilateral. Coarse rales plus bilateral. Rhonchi plus bilateral. No wheezes. ABDOMEN: Soft. Bowel sounds heard. No tenderness, rigidity, or guarding. EXTREMITIES: No peripheral edema or calf tenderness. VASCULAR: Peripheral pulses 1+ bilateral. No ischemic ulcerations or gangrene. CENTRAL NERVOUS SYSTEM: No gross focal motor deficits noted. The patient is alert, awake, and fairly oriented to questions being asked to him. PSYCHIATRIC: No obvious hallucinations or delusions. LABORATORY DATA: Chest x-ray done shows worsening pneumonia in both lower lobes. There is persistent ground-glass opacity in the right upper lobe. BUN 46, creatinine 1.9, albumin 3.1. BNP 33. Electrolytes stable. White count of 13, H and H of 9 and 28, platelet count 304 with 75% neutrophils, MCV is 98. CLINICAL IMPRESSION AND PLAN: The patient will be under observation on medical floor with worsening symptoms of COVID with confusion and increased shortness of breath and worsening infiltrate. We will obtain a CT chest without contrast for quantification. We will place him on Solu-Medrol 20 mg IV q.8 hourly and continue all his home medications including allopurinol, aspirin, pravastatin, ferrous sulfate, finasteride, gabapentin, and Flomax. If the patient remains stable tomorrow, he can be safely discharged on nasal cannula oxygen. If he were to get worse, the patient likely might need high-flow oxygen. He has underlying dementia and has difficulty remembering things. I have tried to call his daughter, Ms. Brittany Ventura on [phone] and was unable to reach her. Job ID: [id number] [facility]
[2020-07-31 15:02] LABS: SARS-CoV-2 IgG Ab Reactive (NonReactive); SARS-CoV-2 IgG Index 6.52 S/CO (< 1.40)
[2020-07-31 15:52] VITALS: BMI 25.4
[2020-07-31] MEDS: methylPREDNISolone Sod Succ 40 MG VIAL IVP SCH ×2 (16:33→20:40)
[2020-07-31] MEDS: Famotidine 20 MG TAB PO SCH (20:39)
[2020-07-31] MEDS: Tamsulosin HCl 0.4 MG CAP PO SCH (20:40)
[2020-07-31] MEDS: Atorvastatin Calcium 10 MG TAB PO SCH (20:40)
[2020-08-01] MEDS: PROVENTIL INHALER 6.7 G (200 INHALATIONS) INH SCH ×4 (01:13→18:01)
[2020-08-01 05:32] LABS: #Lymphocytes 0.8 thou/uL (1.20-3.40); #Monocytes 0.1 thou/uL (0.11-0.59); #Neutrophils 8.1 thou/uL (1.40-6.50); %Basophils 0.1 % (0.0-1.0); %Eosinophils 0.5 % (0.0-10.0); %Monocytes 1.5 % (0.0-10.0); %Neutrophils 88.9 % (42.0-75.0); Hemoglobin 8.3 g/dL (14.0-18.0); Mean Corpuscular HGB CONC 31.5 g/dL (32.0-36.0); Mean Corpuscular Hemoglobin 30.5 pg (27.0-31.0); Mean Corpuscular Volume 96.9 fL (78.0-98.0); Mean Platelet Volume 9.3 fL (7.4-10.4); Platelet Count 266 thou/uL (130-400); RBC Distribution Width 14.6 % (11.5-14.5); Red Blood Cell (RBC) Count 2.71 mill/uL (4.70-6.10); White Blood Cell (WBC) Count 9.1 thou/uL (4.8-10.8)
[2020-08-01] MEDS: methylPREDNISolone Sod Succ 40 MG VIAL IVP SCH ×3 (05:34→19:43)
[2020-08-01 05:52] LABS: ALT (SGPT) 20 U/L (8-55); AST (SGOT) 13 U/L (5-34); Albumin 2.8 g/dL (3.4-4.8); Alkaline Phosphatase 49 U/L (40-110); Anion Gap 15 mmol/L (10-20); BUN (Urea Nitrogen) 46 mg/dL (8.4-25.7); Bilirubin, Total 0.6 mg/dL (0.2-1.2); Calc. Creatinine Clearance 30 mL/min (70-130); Calcium 8.9 mg/dL (7.8-10.44); Carbon Dioxide 23 mmol/L (23-31); Chloride 106 mmol/L (98-107); Globulin 3.4 g/dL (2.4-3.5); Glucose 142 mg/dL (83-110); Potassium 4.3 mmol/L (3.5-5.1); Protein, Total 6.2 g/dL (5.8-8.1); Sodium 140 mmol/L (136-145)
[2020-08-01] MEDS: Gabapentin 300 MG CAP PO SCH (08:38)
[2020-08-01] MEDS: Aspirin Chewable 81 MG TAB PO SCH (08:38)
[2020-08-01] MEDS: Allopurinol 300 MG TAB PO SCH (08:39)
[2020-08-01] MEDS: Famotidine 20 MG TAB PO SCH (08:39)
[2020-08-01] MEDS: Ferrous Sulfate 325 MG TAB PO SCH (08:39)
[2020-08-01] MEDS: Enoxaparin Sodium 40 MG/0.4 ML SYRINGE SC SCH (08:39)
[2020-08-01] MEDS: Finasteride 5 MG TAB PO SCH (08:39)
[2020-08-01] MEDS ORDERED: FLU VACC QS2020-21(65YR UP)/PF 240 MCG/0.7 ML SYRINGE IM ONE (09:00)
--- NOTE | 2020-08-01 11:38 | PDOC.HOSPP ---
- Subjective Encounter Date: 08/01/20 Encounter Time: 08:45 Subjective: Patient seen and examined bedside today, no overnight event, no new complaint, patient was comfortable, he was on 2 L oxygen, he was not tachypneic and no febrile - Objective Vital Signs & Weight: Vital Signs (12 hours) Temp Pulse Resp BP Pulse Ox Pulse Ox Pulse Ox 08/01/20 10:30 100 99 08/01/20 08:00 98.5 F 73 18 137/73 96 08/01/20 05:46 98.1 F 72 20 134/74 94 L 08/01/20 00:15 98.6 F 78 18 123/68 98 Weight Admit Weight 157 lb 11.2 oz Weight 157 lb 11.2 oz I&O: 07/31/20 08/01/20 08/02/20 06:59 06:59 06:59 Intake Total 240 Balance 240 Result Diagrams: 08/01/20 05:02 08/01/20 05:02 Radiology Reviewed by me: Yes Hospitalist ROS - Review of Systems ENT: denies: ear pain, ear discharge, nose pain, nose discharge, nose congestion, mouth pain, mouth swelling, throat pain, throat swelling, other Respiratory: denies: cough, dry, shortness of breath, hemoptysis, SOB with excertion, pleuritic pain, sputum, wheezing, other Cardiovascular: denies: chest pain, palpitations, orthopnea, paroxysmal noc. dy spnea, edema, light headedness, other Gastrointestinal: denies: nausea, vomiting, abdominal pain, diarrhea, constipation, melena, hematochezia, other Genitourinary: denies: dysuria, frequency, incontinence, hematuria, retention, other Other: Patient is slightly confused so review of system may be limited - Medication Medications: Active Medications Generic Name Dose Route Start Last Admin Trade Name Freq PRN Reason Stop Dose Admin Albuterol Sulfate 2 puff 08/01/20 01:00 08/01/20 05:35 Proventil Inhaler 6.7 G (200 Inhalations) INH 2 puff [id number] MIK Administration Allopurinol 300 mg 08/01/20 09:00 08/01/20 08:39 Allopurinol 300 Mg Tab PO 300 mg DAILY MIK Administration Aspirin 81 mg 08/01/20 09:00 08/01/20 08:38 Aspirin Chewable 81 Mg Tab PO 81 mg DAILY MIK Administration Atorvastatin Calcium 10 mg 07/31/20 21:00 07/31/20 20:40 Atorvastatin Calcium 10 Mg Tab PO 10 mg QPM MIK Administration Enoxaparin Sodium 40 mg 08/01/20 09:00 08/01/20 08:39 Enoxaparin Sodium 40 Mg/0.4 Ml Syringe SC 40 mg 0900 MIK Administration Ferrous Sulfate 325 mg 08/01/20 09:00 08/01/20 08:39 Ferrous Sulfate 325 Mg Tab PO 325 mg DAILY MIK Administration Finasteride 5 mg 08/01/20 09:00 08/01/20 08:39 Finasteride 5 Mg Tab PO 5 mg DAILY MIK Administration Gabapentin 600 mg 08/01/20 09:00 08/01/20 08:38 Gabapentin 300 Mg Cap PO 600 mg DAILY MIK Administration Methylprednisolone Sodium Succinate 20 mg 07/31/20 14:00 08/01/20 05:34 Methylprednisolone Sod Succ 40 Mg Vial IVP 20 mg Q8HR MIK Administration Tamsulosin HCl 0.4 mg 07/31/20 21:00 07/31/20 20:40 Tamsulosin Hcl 0.4 Mg Cap PO 0.4 mg HS MIK Administration - Exam General Appearance: NAD, awake alert Eye: PERRL, anicteric sclera ENT: normocephalic atraumatic, no oropharyngeal lesions Neck: supple, symmetric, no JVD, no thyromegaly Heart: RRR, no murmur, no gallops, no rubs Respiratory: no wheezes, no rales, no ronchi Respiratory - other findings: Air entry reduced at base Gastrointestinal: soft, non-tender, non-distended, normal bowel sounds Extremities: no clubbing, no edema Skin: normal turgor, no lesions Neurological: no new deficit Musculoskeletal: normal tone Psychiatric: normal affect Hosp A/P (1) Acute respiratory failure with hypoxia Code(s): J96.01 - ACUTE RESPIRATORY FAILURE WITH HYPOXIA Status: Acute (2) Xxiap-fo-uefydwi kidney injury Code(s): N17.9 - ACUTE KIDNEY FAILURE, UNSPECIFIED; N18.9 - CHRONIC KIDNEY DISEASE, UNSPECIFIED Status: Acute Qualifiers: Chronic kidney disease stage: stage 4 (severe) (3) Pneumonia due to COVID-19 virus Code(s): U07.1 - COVID-19; J12.89 - OTHER VIRAL PNEUMONIA Status: Acute (4) Anemia Code(s): D64.9 - ANEMIA, UNSPECIFIED Status: Chronic Qualifiers: Anemia type: unspecified type Qualified Code(s): D64.9 - Anemia, unspecified (5) Chronic back pain Code(s): M54.9 - DORSALGIA, UNSPECIFIED; G89.29 - OTHER CHRONIC PAIN Status: Chronic Qualifiers: Back pain location: back pain in unspecified location (6) Gout Code(s): M10.9 - GOUT, UNSPECIFIED Status: Chronic Qualifiers: Gout site: unspecified site Chronicity: chronic Presence of tophus: without tophus (7) Hyperlipidemia Code(s): E78.5 - HYPERLIPIDEMIA, UNSPECIFIED Status: Chronic Qualifiers: Hyperlipidemia type: unspecified Qualified Code(s): E78.5 - Hyperlipidemia, unspecified (8) Hypertension Code(s): I10 - ESSENTIAL (PRIMARY) HYPERTENSION Status: Chronic Qualifiers: Hypertension type: essential hypertension Qualified Code(s): I10 - Essential (primary) hypertension - Plan old records reviewed/req, plan discussed w/ family, PT/OT Patient has elevated inflammatory marker and patient has a worsening of infiltration on chest x-ray and CT chest but clinically patient appears to be baseline, he is not tachypneic, he is not having any fever or chills, will continue to monitor in hospital today, continue Solu-Medrol, I have spoken to patient's daughter on phone and updated about plan of care, patient may benefit with [facility] versus home with home health. I am expecting his discharge tomorrow. I have reviewed his home medication and continue current medication
[2020-08-01] MEDS: Tamsulosin HCl 0.4 MG CAP PO SCH (19:41)
[2020-08-01] MEDS: Atorvastatin Calcium 10 MG TAB PO SCH (19:41)
[2020-08-02] MEDS: PROVENTIL INHALER 6.7 G (200 INHALATIONS) INH SCH ×4 (00:25→17:51)
[2020-08-02] MEDS: methylPREDNISolone Sod Succ 40 MG VIAL IVP SCH ×3 (05:15→19:58)
[2020-08-02] MEDS: Enoxaparin Sodium 40 MG/0.4 ML SYRINGE SC SCH (08:15)
[2020-08-02] MEDS: Aspirin Chewable 81 MG TAB PO SCH (08:16)
[2020-08-02] MEDS: Famotidine 20 MG TAB PO SCH (08:16)
[2020-08-02] MEDS: Finasteride 5 MG TAB PO SCH (08:16)
[2020-08-02] MEDS: Ferrous Sulfate 325 MG TAB PO SCH (08:16)
[2020-08-02] MEDS: Gabapentin 300 MG CAP PO SCH (08:16)
[2020-08-02] MEDS: Allopurinol 300 MG TAB PO SCH (08:16)
--- NOTE | 2020-08-02 10:27 | PDOC.HOSPP ---
- Subjective Encounter Date: 08/02/20 Encounter Time: 08:00 Subjective: Patient seen and examined bedside today, no overnight event, - Objective Vital Signs & Weight: Vital Signs (12 hours) Temp Pulse Resp BP BP Pulse Ox 08/02/20 08:48 98.1 F 74 18 118/65 100 08/02/20 08:46 98.1 F 74 18 118/65 100 08/02/20 08:45 98.1 F 74 18 118/65 100 08/02/20 05:26 98.4 F 65 18 116/63 100 08/02/20 00:09 97.4 F L 61 18 128/63 100 Weight Admit Weight 157 lb 11.2 oz Weight 157 lb 11.2 oz I&O: 08/01/20 08/02/20 08/03/20 06:59 06:59 06:59 Intake Total 240 Balance 240 Result Diagrams: 08/01/20 05:02 08/01/20 05:02 Hospitalist ROS - Review of Systems ROS unobtainable: due to mental status - Medication Medications: Active Medications Generic Name Dose Route Start Last Admin Trade Name Freq PRN Reason Stop Dose Admin Albuterol Sulfate 2 puff 08/01/20 01:00 08/02/20 05:15 Proventil Inhaler 6.7 G (200 Inhalations) INH 2 puff [id number] MIK Administration Allopurinol 300 mg 08/01/20 09:00 08/02/20 08:16 Allopurinol 300 Mg Tab PO 300 mg DAILY MIK Administration Aspirin 81 mg 08/01/20 09:00 08/02/20 08:16 Aspirin Chewable 81 Mg Tab PO 81 mg DAILY MIK Administration Atorvastatin Calcium 10 mg 07/31/20 21:00 08/01/20 19:41 Atorvastatin Calcium 10 Mg Tab PO 10 mg QPM MIK Administration Enoxaparin Sodium 40 mg 08/01/20 09:00 08/02/20 08:15 Enoxaparin Sodium 40 Mg/0.4 Ml Syringe SC 40 mg 0900 MIK Administration Famotidine 20 mg 08/02/20 09:00 08/02/20 08:16 Famotidine 20 Mg Tab PO 20 mg DAILY MIK Administration Ferrous Sulfate 325 mg 08/01/20 09:00 08/02/20 08:16 Ferrous Sulfate 325 Mg Tab PO 325 mg DAILY MIK Administration Finasteride 5 mg 08/01/20 09:00 08/02/20 08:16 Finasteride 5 Mg Tab PO 5 mg DAILY MIK Administration Gabapentin 600 mg 08/01/20 09:00 08/02/20 08:16 Gabapentin 300 Mg Cap PO 600 mg DAILY MIK Administration Methylprednisolone Sodium Succinate 20 mg 07/31/20 14:00 08/02/20 05:15 Methylprednisolone Sod Succ 40 Mg Vial IVP 20 mg Q8HR MIK Administration Tamsulosin HCl 0.4 mg 07/31/20 21:00 08/01/20 19:41 Tamsulosin Hcl 0.4 Mg Cap PO 0.4 mg HS MIK Administration - Exam General Appearance: NAD, awake alert Eye: PERRL, anicteric sclera ENT: normocephalic atraumatic, no oropharyngeal lesions Neck: supple, symmetric, no JVD Heart: RRR, no murmur, no gallops Respiratory: no wheezes, no rales, no ronchi Gastrointestinal: soft, non-tender, non-distended Extremities: no clubbing, no edema Skin: normal turgor, no lesions Musculoskeletal: normal tone Psychiatric: normal affect Hosp A/P (1) Acute respiratory failure with hypoxia Code(s): J96.01 - ACUTE RESPIRATORY FAILURE WITH HYPOXIA Status: Acute (2) Hfcud-sa-zkbypzq kidney injury Code(s): N17.9 - ACUTE KIDNEY FAILURE, UNSPECIFIED; N18.9 - CHRONIC KIDNEY DISEASE, UNSPECIFIED Status: Acute Qualifiers: Chronic kidney disease stage: stage 4 (severe) (3) Pneumonia due to COVID-19 virus Code(s): U07.1 - COVID-19; J12.89 - OTHER VIRAL PNEUMONIA Status: Acute (4) Anemia Code(s): D64.9 - ANEMIA, UNSPECIFIED Status: Chronic Qualifiers: Anemia type: unspecified type Qualified Code(s): D64.9 - Anemia, unspecified (5) Chronic back pain Code(s): M54.9 - DORSALGIA, UNSPECIFIED; G89.29 - OTHER CHRONIC PAIN Status: Chronic Qualifiers: Back pain location: back pain in unspecified location (6) Gout Code(s): M10.9 - GOUT, UNSPECIFIED Status: Chronic Qualifiers: Gout site: unspecified site Chronicity: chronic Presence of tophus: without tophus (7) Hyperlipidemia Code(s): E78.5 - HYPERLIPIDEMIA, UNSPECIFIED Status: Chronic Qualifiers: Hyperlipidemia type: unspecified Qualified Code(s): E78.5 - Hyperlipidemia, unspecified (8) Hypertension Code(s): I10 - ESSENTIAL (PRIMARY) HYPERTENSION Status: Chronic Qualifiers: Hypertension type: essential hypertension Qualified Code(s): I10 - Es sential (primary) hypertension - Plan old records reviewed/req, plan discussed w/ family, PT/OT, psychotherapist social worker Seen and examined bedside today, he appears comfortable, he is up to his baseline level, at this point assistant manager working on his placement to [facility], we are awaiting authorization and approval, otherwise patient is medically stable for discharge anytime. Updated to family member.
[2020-08-02] MEDS: Atorvastatin Calcium 10 MG TAB PO SCH (19:58)
[2020-08-02] MEDS: Tamsulosin HCl 0.4 MG CAP PO SCH (19:58)
[2020-08-03] MEDS: PROVENTIL INHALER 6.7 G (200 INHALATIONS) INH SCH ×4 (01:08→17:59)
[2020-08-03] MEDS: methylPREDNISolone Sod Succ 40 MG VIAL IVP SCH ×3 (05:39→19:53)
[2020-08-03] MEDS: Gabapentin 300 MG CAP PO SCH (07:47)
[2020-08-03] MEDS: Allopurinol 300 MG TAB PO SCH (07:48)
[2020-08-03] MEDS: Aspirin Chewable 81 MG TAB PO SCH (07:48)
[2020-08-03] MEDS: Ferrous Sulfate 325 MG TAB PO SCH (07:48)
[2020-08-03] MEDS: Finasteride 5 MG TAB PO SCH (07:48)
[2020-08-03] MEDS: Famotidine 20 MG TAB PO SCH (07:48)
[2020-08-03] MEDS: Enoxaparin Sodium 40 MG/0.4 ML SYRINGE SC SCH (07:49)
--- NOTE | 2020-08-03 09:48 | PDOC.HOSPP ---
- Subjective Encounter Date: 08/03/20 Encounter Time: 08:15 Subjective: Patient seen and examined bedside today, patient is comfortable, no overnight event, no fever, - Objective Vital Signs & Weight: Vital Signs (12 hours) Temp Pulse Resp BP Pulse Ox 08/03/20 08:00 97.5 F L 60 18 122/67 100 08/02/20 23:58 98.1 F 76 18 110/59 L 99 Weight Admit Weight 157 lb 11.2 oz Weight 157 lb 11.2 oz I&O: 08/02/20 08/03/20 08/04/20 06:59 06:59 06:59 Intake Total 480 240 Balance 480 240 Result Diagrams: 08/01/20 05:02 08/01/20 05:02 Hospitalist ROS - Review of Systems ROS unobtainable: due to mental status - Medication Medications: Active Medications Generic Name Dose Route Start Last Admin Trade Name Freq PRN Reason Stop Dose Admin Albuterol Sulfate 2 puff 08/01/20 01:00 08/03/20 05:39 Proventil Inhaler 6.7 G (200 Inhalations) INH 2 puff [id number] MIK Administration Allopurinol 300 mg 08/01/20 09:00 08/03/20 07:48 Allopurinol 300 Mg Tab PO 300 mg DAILY MIK Administration Aspirin 81 mg 08/01/20 09:00 08/03/20 07:48 Aspirin Chewable 81 Mg Tab PO 81 mg DAILY MIK Administration Atorvastatin Calcium 10 mg 07/31/20 21:00 08/02/20 19:58 Atorvastatin Calcium 10 Mg Tab PO 10 mg QPM MIK Administration Enoxaparin Sodium 40 mg 08/01/20 09:00 08/03/20 07:49 Enoxaparin Sodium 40 Mg/0.4 Ml Syringe SC 40 mg 0900 MIK Administration Famotidine 20 mg 08/02/20 09:00 08/03/20 07:48 Famotidine 20 Mg Tab PO 20 mg DAILY MIK Administration Ferrous Sulfate 325 mg 08/01/20 09:00 08/03/20 07:48 Ferrous Sulfate 325 Mg Tab PO 325 mg DAILY MIK Administration Finasteride 5 mg 08/01/20 09:00 08/03/20 07:48 Finasteride 5 Mg Tab PO 5 mg DAILY MIK Administration Gabapentin 600 mg 08/01/20 09:00 08/03/20 07:47 Gabapentin 300 Mg Cap PO 600 mg DAILY MIK Administration Methylprednisolone Sodium Succinate 20 mg 07/31/20 14:00 08/03/20 05:39 Methylprednisolone Sod Succ 40 Mg Vial IVP 20 mg Q8HR MIK Administration Tamsulosin HCl 0.4 mg 07/31/20 21:00 08/02/20 19:58 Tamsulosin Hcl 0.4 Mg Cap PO 0.4 mg HS MIK Administration - Exam General Appearance: NAD, awake alert Eye: PERRL, anicteric sclera ENT: normocephalic atraumatic, no oropharyngeal lesions Neck: supple, symmetric, no JVD, no thyromegaly Heart: no murmur, no gallops, no rubs Respiratory: no wheezes, no rales, no ronchi Gastrointestinal: soft, non-tender, non-distended, normal bowel sounds Extremities: no clubbing, no edema Skin: normal turgor, no lesions Neurological: no focal deficits Musculoskeletal: normal tone, normal strength Psychiatric: normal affect Hosp A/P (1) Acute respiratory failure with hypoxia Code(s): J96.01 - ACUTE RESPIRATORY FAILURE WITH HYPOXIA Status: Acute (2) Ppcha-vy-sydfedq kidney injury Code(s): N17.9 - ACUTE KIDNEY FAILURE, UNSPECIFIED; N18.9 - CHRONIC KIDNEY DISEASE, UNSPECIFIED Status: Acute Qualifiers: Chronic kidney disease stage: stage 4 (severe) (3) Pneumonia due to COVID-19 virus Code(s): U07.1 - COVID-19; J12.89 - OTHER VIRAL PNEUMONIA Status: Acute (4) Anemia Code(s): D64.9 - ANEMIA, UNSPECIFIED Status: Chronic Qualifiers: Anemia type: unspecified type Qualified Code(s): D64.9 - Anemia, unspecified (5) Chronic back pain Code(s): M54.9 - DORSALGIA, UNSPECIFIED; G89.29 - OTHER CHRONIC PAIN Status: Chronic Qualifiers: Back pain location: back pain in unspecified location (6) Gout Code(s): M10.9 - GOUT, UNSPECIFIED Status: Chronic Qualifiers: Gout site: unspecified site Chronicity: chronic Presence of tophus: with out tophus (7) Hyperlipidemia Code(s): E78.5 - HYPERLIPIDEMIA, UNSPECIFIED Status: Chronic Qualifiers: Hyperlipidemia type: unspecified Qualified Code(s): E78.5 - Hyperlipidemia, unspecified (8) Hypertension Code(s): I10 - ESSENTIAL (PRIMARY) HYPERTENSION Status: Chronic Qualifiers: Hypertension type: essential hypertension Qualified Code(s): I10 - Essential (primary) hypertension - Plan old records reviewed/req, PT/OT, social psychologist, DVT proph w/lovenox Regarding COVID-19 perspective patient is stable, he has no fever and he is saturating normal on room air, even though radiological finding showing worseni ng of infiltration but patient clinically doing much better, no need of any further therapy at this point, patient has significant physical deconditioning and that is why patient needs assisted home, disease case manager is working on his placement. Today we will continue IV Solu-Medrol and tomorrow we will change to p.o. prednisone for few more days., Medication reviewed and continue provide symptomatic and supportive care
--- NOTE | 2020-08-03 15:19 | EKG ---
Test Reason : SOB Blood Pressure : / mmHG Vent. Rate : 098 BPM Atrial Rate : 098 BPM P-R Int : 136 ms QRS Dur : 134 ms QT Int : 400 ms P-R-T Axes : 045 -83 030 degrees QTc Int : 510 ms Normal sinus rhythm with sinus arrhythmia Right bundle branch block Left anterior fascicular block Bifascicular block Septal infarct , age undetermined Abnormal ECG Confirmed by VIMAL GIL ([id number]), digital editor JUAN A VIGIL ([id number]) on 08/03/2020 3:19:13 PM Referred By: Confirmed By:VIMAL Hernandez
[2020-08-03] MEDS: Atorvastatin Calcium 10 MG TAB PO SCH (19:52)
[2020-08-03] MEDS: Tamsulosin HCl 0.4 MG CAP PO SCH (19:53)
[2020-08-04] MEDS: PROVENTIL INHALER 6.7 G (200 INHALATIONS) INH SCH ×4 (00:51→19:56)
[2020-08-04] MEDS: methylPREDNISolone Sod Succ 40 MG VIAL IVP SCH (05:19)
[2020-08-04] MEDS: Gabapentin 300 MG CAP PO SCH (07:46)
[2020-08-04] MEDS: Aspirin Chewable 81 MG TAB PO SCH (07:46)
[2020-08-04] MEDS: Famotidine 20 MG TAB PO SCH (07:46)
[2020-08-04] MEDS: Finasteride 5 MG TAB PO SCH (07:47)
[2020-08-04] MEDS: Ferrous Sulfate 325 MG TAB PO SCH (07:47)
[2020-08-04] MEDS: Allopurinol 300 MG TAB PO SCH (07:47)
[2020-08-04] MEDS: Enoxaparin Sodium 40 MG/0.4 ML SYRINGE SC SCH (07:47)
--- NOTE | 2020-08-04 11:51 | PDOC.HOSPP ---
- Subjective Encounter Date: 08/04/20 Encounter Time: 07:40 Subjective: Patient seen and examined. No new complaints. No overnight events - Objective Vital Signs & Weight: Vital Signs (12 hours) Temp Pulse Resp BP Pulse Ox 08/04/20 08:00 98.0 F 64 18 122/70 100 08/04/20 04:11 97.7 F 60 16 118/69 100 08/04/20 00:22 98 F 68 18 122/68 100 Weight Admit Weight 157 lb 11.2 oz Weight 157 lb 11.2 oz I&O: 08/03/20 08/04/20 08/05/20 06:59 06:59 06:59 Intake Total 480 720 240 Balance 480 720 240 Result Diagrams: 08/01/20 05:02 08/01/20 05:02 Hospitalist ROS - Review of Systems ENT: denies: ear pain, ear discharge, nose pain, nose discharge, nose congestion, mouth pain, mouth swelling, throat pain, throat swelling, other Respiratory: denies: cough, dry, shortness of breath, hemoptysis, SOB with excertion, pleuritic pain, sputum, wheezing, other Cardiovascular: denies: chest pain, palpitations, orthopnea, paroxysmal noc. dyspnea, edema, light headedness, other Gastrointestinal: denies: nausea, vomiting, abdominal pain, diarrhea, constipation, melena, hematochezia, other Genitourinary: denies: dysuria, frequency, incontinence, hematuria, retention, other - Medication Medications: Active Medications Generic Name Dose Route Start Last Admin Trade Name Freq PRN Reason Stop Dose Admin Albuterol Sulfate 2 puff 08/01/20 01:00 08/04/20 05:18 Proventil Inhaler 6.7 G (200 Inhalations) INH 2 puff [id number] MIK Administration Allopurinol 300 mg 08/01/20 09:00 08/04/20 07:47 Allopurinol 300 Mg Tab PO 300 mg DAILY MIK Administration Aspirin 81 mg 08/01/20 09:00 08/04/20 07:46 Aspirin Chewable 81 Mg Tab PO 81 mg DAILY MIK Administration Atorvastatin Calcium 10 mg 07/31/20 21:00 08/03/20 19:52 Atorvastatin Calcium 10 Mg Tab PO 10 mg QPM MIK Administration Enoxaparin Sodium 40 mg 08/01/20 09:00 08/04/20 07:47 Enoxaparin Sodium 40 Mg/0.4 Ml Syringe SC 40 mg 0900 MIK Administration Famotidine 20 mg 08/02/20 09:00 08/04/20 07:46 Famotidine 20 Mg Tab PO 20 mg DAILY MIK Administration Ferrous Sulfate 325 mg 08/01/20 09:00 08/04/20 07:47 Ferrous Sulfate 325 Mg Tab PO 325 mg DAILY MIK Administration Finasteride 5 mg 08/01/20 09:00 08/04/20 07:47 Finasteride 5 Mg Tab PO 5 mg DAILY MIK Administration Gabapentin 600 mg 08/01/20 09:00 08/04/20 07:46 Gabapentin 300 Mg Cap PO 600 mg DAILY MIK Administration Methylprednisolone Sodium Succinate 20 mg 07/31/20 14:00 08/04/20 05:19 Methylprednisolone Sod Succ 40 Mg Vial IVP 20 mg Q8HR MIK Administration Tamsulosin HCl 0.4 mg 07/31/20 21:00 08/03/20 19:53 Tamsulosin Hcl 0.4 Mg Cap PO 0.4 mg HS MIK Administration - Exam General Appearance: NAD, awake alert Eye: PERRL, anicteric sclera ENT: normocephalic atraumatic, no oropharyngeal lesions Neck: supple, symmetric, no JVD, no thyromegaly Heart: RRR, no murmur, no gallops, no rubs Respiratory: CTAB, no wheezes, no rales, no ronchi Gastrointestinal: soft, non-tender, non-distended, normal bowel sounds Extremities: no cyanosis, no clubbing, no edema Skin: normal turgor, no lesions Neurological: no focal deficits Musculoskeletal: normal tone, normal strength Psychiatric: normal affect, normal behavior Hosp A/P (1) Acute respiratory failure with hypoxia Code(s): J96.01 - ACUTE RESPIRATORY FAILURE WITH HYPOXIA Status: Acute (2) [place]-vh-wyyzger kidney injury Code(s): N17.9 - ACUTE KIDNEY FAILURE, UNSPECIFIED; N18.9 - CHRONIC KIDNEY DISEASE, UNSPECIFIED Status: Acute Qualifiers: Chronic kidney disease stage: stage 4 (severe) (3) Pneumonia due to COVID-19 virus Code(s): U07.1 - COVID-19; J12.89 - OTHER VIRAL PNEUMONIA Status: Acute (4) Anemia Code(s): D64.9 - ANEMIA, UNSPECIFIED Status: Chronic Qualifiers: Anemia type: unspecified type Qualified Code(s): D64.9 - Anemia, unspecified (5) Chronic back pain Code(s): M54.9 - DORSALGIA, UNSPECIFIED; G89.29 - OTHER CHRONIC PAIN Status: Chronic Qualifiers: Back pain location: back pain in unspecified location (6) Gout Code(s): M10.9 - GOUT, UNSPECIFIED Status: Chronic Qualifiers: Gout site: unspecified site Chronicity: chronic Presence of tophus: without tophus (7) Hyperlipidemia Code(s): E78.5 - HYPERLIPIDEMIA, UNSPECIFIED Status: Chronic Qualifiers: Hyperlipidemia type: unspecified Qualified Code(s): E78.5 - Hyperlipidemia, unspecified (8) Hypertension Code(s): I10 - ESSENTIAL (PRIMARY) HYPERTENSION Status: Chronic Qualifiers: Hypertension type: essential hypertension Qualified Code(s): I10 - Essential (primary) hypertension - Plan old records reviewed/req, PT/OT, aids social worker Today we will discontinue Solu-Medrol and start Decadron 6 mg p.o. daily to finish total 10 days course Await placement Medication reviewed and continue provide symptomatic and supportive care Tried to reach out family member on phone but no response on phone
[2020-08-04] MEDS: Atorvastatin Calcium 10 MG TAB PO SCH (19:56)
[2020-08-04] MEDS: Tamsulosin HCl 0.4 MG CAP PO SCH (19:56)
[2020-08-05] MEDS: PROVENTIL INHALER 6.7 G (200 INHALATIONS) INH SCH ×4 (01:50→18:23)
[2020-08-05] MEDS: Famotidine 20 MG TAB PO SCH (08:30)
[2020-08-05] MEDS: Enoxaparin Sodium 40 MG/0.4 ML SYRINGE SC SCH (08:30)
[2020-08-05] MEDS: Aspirin Chewable 81 MG TAB PO SCH (08:30)
[2020-08-05] MEDS: Dexamethasone 4 MG TAB PO SCH (08:31)
[2020-08-05] MEDS: Gabapentin 300 MG CAP PO SCH (08:31)
[2020-08-05] MEDS: Ferrous Sulfate 325 MG TAB PO SCH (08:32)
[2020-08-05] MEDS: Finasteride 5 MG TAB PO SCH (08:32)
[2020-08-05] MEDS: Allopurinol 300 MG TAB PO SCH (08:32)
--- NOTE | 2020-08-05 10:31 | PQF ---
CLINICAL DOCUMENTATION CLARIFICATION FORM: Dear Dr. AXEL WELCH Date: 08-05-20 Please exercise your independent, professional judgment in responding to the clarification form. Clinical indicators are provided on the bottom of this form for your review. Please check appropriate box(es): [ ] Encephalopathy: Type: [ X] Acute [ ] Subacute [ ] Chronic Etiology: [ X] Metabolic [ ] Toxic [ ] Hypoxic [ ] Unspecified [ X ] Other (please specify) ___Multifactoria acute delirium due to acute illness { X] Yes [ ] No [ ] Unable to determine For continuity of documentation, please document condition throughout progress notes and discharge summary. Thank You. To be completed by CDI/Coding staff for physician review: CLINICAL INDICATORS - SIGNS / SYMPTOMS / LABS / RESULTS AND LOCATION IN EMR: ER NOTES 07-31-20: SOME MILD CONFUSION H&P 07-31-20: DAUGHTER SAYING HE WAS CONFUSED, DIAGNOSED WITH COVID PNEUMONIA ON June, IN WITH WORSENING SYMPTOMS OF COVID WITH CONFUSION AND INCREASED SOB AND WORSENING INFILTRATE. HE HAS UNDERLYING DEMENTIA AND HAS DIFFICULTY REMEMBERING THINGS. RISK FACTORS / RESULTS AND LOCATION IN EMR: H&P 07-31-20: DAUGHTER SAYING HE WAS CONFUSED, DIAGNOSED WITH COVID PNEUMONIA ON June, IN WITH WORSENING SYMPTOMS OF COVID WITH CONFUSION AND INCREASED SOB AND WORSENING INFILTRATE. 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
--- NOTE | 2020-08-05 17:09 | PDOC.HOSPP ---
- Subjective Encounter Date: 08/05/20 Subjective: Seen and examined at bedside in no acute distress. Transitioned to oral decadron. Patient with known dementia and intermittent forgetfulness. - Objective Vital Signs & Weight: Vital Signs (12 hours) Temp Pulse Resp BP Pulse Ox 08/05/20 09:00 97.3 F L 65 18 115/57 L 98 08/05/20 08:00 98 Weight Admit Weight 157 lb 11.2 oz Weight 157 lb 11.2 oz I&O: 08/04/20 08/05/20 08/06/20 06:59 06:59 06:59 Intake Total 720 720 480 Balance 720 720 480 Result Diagrams: 08/01/20 05:02 08/01/20 05:02 Hospitalist ROS - Review of Systems Constitutional: denies: fever, chills, sweats, weakness, malaise, other Respiratory: denies: cough, dry, shortness of breath, hemoptysis, SOB with excertion, pleuritic pain, sputum, wheezing, other Gastrointestinal: denies: nausea, vomiting, abdominal pain, diarrhea, constipati on, melena, hematochezia, other Musculoskeletal: denies: neck pain, shoulder pain, arm pain, back pain, hand pain, leg pain, foot pain, other - Medication Medications: Active Medications Generic Name Dose Route Start Last Admin Trade Name Freq PRN Reason Stop Dose Admin Albuterol Sulfate 2 puff 08/01/20 01:00 08/05/20 12:08 Proventil Inhaler 6.7 G (200 Inhalations) INH 2 puff [id number] MIK Administration Allopurinol 300 mg 08/01/20 09:00 08/05/20 08:32 Allopurinol 300 Mg Tab PO 300 mg DAILY MIK Administration Aspirin 81 mg 08/01/20 09:00 08/05/20 08:30 Aspirin Chewable 81 Mg Tab PO 81 mg DAILY MIK Administration Atorvastatin Calcium 10 mg 07/31/20 21:00 08/04/20 19:56 Atorvastatin Calcium 10 Mg Tab PO 10 mg QPM MIK Administration Dexamethasone 6 mg 08/05/20 08:00 08/05/20 08:31 Dexamethasone 4 Mg Tab PO 6 mg QAM-WM MIK Administration Enoxaparin Sodium 40 mg 08/01/20 09:00 08/05/20 08:30 Enoxaparin Sodium 40 Mg/0.4 Ml Syringe SC 40 mg 0900 MIK Administration Famotidine 20 mg 08/02/20 09:00 08/05/20 08:30 Famotidine 20 Mg Tab PO 20 mg DAILY MIK Administration Ferrous Sulfate 325 mg 08/01/20 09:00 08/05/20 08:32 Ferrous Sulfate 325 Mg Tab PO 325 mg DAILY MIK Administration Finasteride 5 mg 08/01/20 09:00 08/05/20 08:32 Finasteride 5 Mg Tab PO 5 mg DAILY MIK Administration Gabapentin 600 mg 08/01/20 09:00 08/05/20 08:31 Gabapentin 300 Mg Cap PO 600 mg DAILY MIK Administration Tamsulosin HCl 0.4 mg 07/31/20 21:00 08/04/20 19:56 Tamsulosin Hcl 0.4 Mg Cap PO 0.4 mg HS MIK Administration - Exam General Appearance: NAD, awake alert Eye: PERRL, anicteric sclera Heart: RRR, no murmur, no gallops, no rubs, normal peripheral pulses Respiratory: CTAB, no wheezes, no rales, no ronchi, normal chest expansion, no tachypnea, normal percussion Respiratory - other findings: Decreased breath sounds at bases Gastrointestinal: soft, non-tender, non-distended, normal bowel sounds, no palpable masses, no hepatomegaly, no splenomegaly, no bruit Hosp A/P - Plan A/P: Admitted with worsening COVID 19 PNA. Transitioned to PO Decadron. Continue with other medications for symptom management. Awaiting placement. # COVID 19 PNA: Continues to improve. Transitioned to PO Decadron to complete total of 10 days. # Dementia: Appears to be at baseline. Avoid delirium triggers. Awaiting placement. CM follows. # BPH: Continue with current medications. DISPOSITION: Continue with symptomatic management. CM follows for placement/social group worker needs.
[2020-08-05] MEDS: Tamsulosin HCl 0.4 MG CAP PO SCH (20:20)
[2020-08-05] MEDS: Atorvastatin Calcium 10 MG TAB PO SCH (20:20)
[2020-08-06] MEDS: PROVENTIL INHALER 6.7 G (200 INHALATIONS) INH SCH ×3 (01:49→15:00)
[2020-08-06] MEDS: Dexamethasone 4 MG TAB PO SCH (09:08)
[2020-08-06] MEDS: Aspirin Chewable 81 MG TAB PO SCH (09:08)
[2020-08-06] MEDS: Finasteride 5 MG TAB PO SCH (09:09)
[2020-08-06] MEDS: Famotidine 20 MG TAB PO SCH (09:09)
[2020-08-06] MEDS: Allopurinol 300 MG TAB PO SCH (09:09)
[2020-08-06] MEDS: Gabapentin 300 MG CAP PO SCH (09:09)
[2020-08-06] MEDS: Ferrous Sulfate 325 MG TAB PO SCH (09:09)
[2020-08-06] MEDS: Enoxaparin Sodium 40 MG/0.4 ML SYRINGE SC SCH (09:10)
[2020-08-06 09:55] LABS: #Eosinphils 0.1 thou/uL (0.0-0.7); #Lymphocytes 1.9 thou/uL (1.20-3.40); #Monocytes 0.7 thou/uL (0.11-0.59); %Eosinophils 0.4 % (0.0-10.0); %Lymphocytes 10.5 % (21.0-51.0); %Monocytes 4.1 % (0.0-10.0); %Neutrophils 84.9 % (42.0-75.0); Hemoglobin 8.7 g/dL (14.0-18.0); Mean Corpuscular HGB CONC 30.5 g/dL (32.0-36.0); Mean Corpuscular Hemoglobin 31.3 pg (27.0-31.0); Mean Platelet Volume 10.1 fL (7.4-10.4); Platelet Count 184 thou/uL (130-400); RBC Distribution Width 14.9 % (11.5-14.5); Red Blood Cell (RBC) Count 2.77 mill/uL (4.70-6.10); White Blood Cell (WBC) Count 17.6 thou/uL (4.8-10.8)
[2020-08-06 10:11] LABS: Anion Gap 16 mmol/L (10-20); BUN (Urea Nitrogen) 61 mg/dL (8.4-25.7); Calc. Creatinine Clearance 27 mL/min (70-130); Calcium 9.7 mg/dL (7.8-10.44); Carbon Dioxide 23 mmol/L (23-31); Chloride 105 mmol/L (98-107); Glucose 130 mg/dL (83-110); Potassium 4.7 mmol/L (3.5-5.1); Sodium 139 mmol/L (136-145)
[2020-08-06 10:28] VITALS: BP 112/73; TEMP 97.7
--- NOTE | 2020-08-06 11:16 | PDOC.DS.DS ---
Provider - Provider Date of Admission: 07/31/20 10:26 Date of Discharge: 08/06/20 Admitting Provider: Arvind Knox MD Primary Care Physician: Unknown Course - Hospital Course Hospital Course: Initially brought in to ED by daughter for evaluation of worsening confusion. He does have some underlying dementia but his mentation was out of proportion to his baseline. With above symptoms he was noted to have progressive shortness of breath. He was admitted for observation of worsening COVID19 PNA based on symptoms and increasing infiltrates on x-ray. Transitioned to IV steroids. Initially started on 2L NC. He had good response to pulse steroids and soon was back on room air. He has been transitioned to PO Decadron that he will continue for a few more days. At time of discharge to SNF patient is medically stable. Resuscitation Status: 07/31/20 11:27 Resuscitation Status Routine Resuscitation Status: FULL: Full Resuscitation - Labs Lab Results: 08/06/20 09:44 08/06/20 09:44 Abnormal Lab Results - Last 48 hrs 08/06/20 09:44: BUN 61 H, Creatinine 1.89 H 08/06/20 09:44: WBC 17.6 H, RBC 2.77 L, Hgb 8.7 L, Hct 28.4 L, MCV 102.0 H, MCH 31.3 H, MCHC 30.5 L, RDW 14.9 H, Neutrophils % 84.9 H, Lymphocytes % 10.5 L, Neutrophils # 15.0 H, Monocytes # 0.7 H - Physical Exam Vitals: Vital Signs (12 hours) Temp Pulse Resp BP Pulse Ox 08/06/20 08:00 97.7 F 68 18 112/73 100 08/06/20 06:14 73 Weight Admit Weight 157 lb 11.2 oz Weight 157 lb 11.2 oz Physical Exam: The patient was seen and examined on the day of discharge. Problem - Discharge Plan Plan of Treatment: A/P: Admitted with worsening COVID 19 PNA. Transitioned to PO Decadron. Continue with other medications for symptom management. Awaiting placement. # COVID 19 PNA: Continues to improve. Transitioned to PO Decadron to complete total of 10 days. # Dementia: Appears to be at baseline. Avoid delirium triggers. Awaiting placement. CM follows. # CKD: Renal function appears stable. # BPH: Continue with current medications. Plan - Discharge Medications Home Medications: Medication Instructions Recorded Confirmed Type Gabapentin [Neurontin] 600 mg PO PRN PRN 04/05/13 07/31/20 History Finasteride 5 mg PO DAILY 06/05/16 07/31/20 History Pravastatin Sodium 40 mg PO QPM 06/05/16 07/31/20 History Ferrous Sulfate 325 mg PO DAILY 04/20/20 07/31/20 History Omeprazole 20 mg PO DAILY 04/20/20 07/31/20 History Tamsulosin HCl 0.4 mg PO HS 04/20/20 07/31/20 History Magnesium Oxide 400 mg PO DAILY #4 tablet 04/22/20 07/31/20 Rx Aspirin Chewable [Aspirin Chewable 81 mg PO DAILY 07/23/20 07/31/20 History Tablet] Benzonatate [Tessalon] 100 mg PO TID PRN 07/24/20 07/31/20 History Acetaminophen [Tylenol Regular 650 mg PO Q4H PRN tab 08/06/20 Rx Strength] Albuterol Sulfate [Proventil Hfa] 2 puff INH [id number] inh 08/06/20 Rx Allopurinol [Zyloprim] 300 mg PO DAILY tablet 08/06/20 Rx Bisacodyl [Dulcolax] 10 mg ME DAILYPRN PRN supp 08/06/20 Rx Calcium Carbonate [Tums] 1,000 mg PO Q4H PRN tab 08/06/20 Rx Dexamethasone [Decadron] 6 mg PO QAM-WM tab 08/06/20 Rx Famotidine [Pepcid] 20 mg PO DAILY tab 08/06/20 Rx Guaifenesin DM 100-10 [Robitussin 15 ml PO Q4H PRN ml 08/06/20 Rx DM] Sennosides/Docusate Sodium 2 tab PO BIDPRN PRN tab 08/06/20 Rx [Senokot S] Allergies: No Known Allergies Allergy (Verified 07/23/20 23:42) - Discharge Instructions Discharge Instructions:: diet: Regular diet PT/OT evaluation and treatment - Follow up Plan Referrals: Unknown,Unknown [Primary Care Provider] - (Follow up with MD in [place]) Disposition: [facility] Quality - Care Measures CORE MEASURES:: N/A
== END 2020-08-06 16:31 | DRG 177 ==
LOC: ERS 09:09 → INTOOBSV 10:26 → T4-A 10:26 → OBSVTOIN 08-06 16:30
PROVIDERS: ADMIT Internal Medicine; ATTEND Internal Medicine
DX: U07.1 COVID-19 (principal); J12.89 Other viral pneumonia; J96.01 Acute respiratory failure with hypoxia; G93.41 Metabolic encephalopathy; N18.4 Chronic kidney disease, stage 4 (severe); N17.9 Acute kidney failure, unspecified; I48.20 Chronic atrial fibrillation, unspecified; F05 Delirium due to known physiological condition; F03.90 Unspecified dementia, unspecified severity, without behavioral disturbance, psychotic disturbance, mood disturbance, and anxiety; I12.9 Hypertensive chronic kidney disease with stage 1 through stage 4 chronic kidney disease, or unspecified chronic kidney disease; D63.1 Anemia in chronic kidney disease; N40.0 Benign prostatic hyperplasia without lower urinary tract symptoms; E78.5 Hyperlipidemia, unspecified; G62.9 Polyneuropathy, unspecified; E78.00 Pure hypercholesterolemia, unspecified; M10.9 Gout, unspecified; G89.29 Other chronic pain; M54.9 Dorsalgia, unspecified; Z79.82 Long term (current) use of aspirin; Z79.899 Other long term (current) drug therapy; Z95.0 Presence of cardiac pacemaker; Z82.49 Family history of ischemic heart disease and other diseases of the circulatory system; Z82.61 Family history of arthritis; Z83.49 Family history of other endocrine, nutritional and metabolic diseases
CPT/HCPCS: 36415; 71045; 71250; 80048; 80053; 82728; 83880; 84484; 85025; 86140; 86769; 93005; J1650; J2920; J8540